=== PATIENT | male | born 1950 | race Caucasian/White ===

== ENCOUNTER 2021-01-20 01:04 | Emergency (ER) | payer BC ==
[~2021-01-20] VITALS: Ht 198.1 cm; Wt 104.5 kg
[2021-01-20] MEDS ORDERED: fentaNYL/PF 50MCG/1 ML 2ML syringe IV ONE ×3 (01:10→02:50)
[2021-01-20] MEDS ORDERED: ondansetron/PF 4mg/2ml inj IV ONE ×2 (01:10→01:15)
[2021-01-20] MEDS ORDERED: TETanus/Pertussis (Acell)/Diphther VAC/PF (Tdap-Adult) 0.5ml syringe IMVAC ONE (01:15)
[2021-01-20] MEDS ORDERED: normal saline 1000ML IV soln IVB ONE (01:15)
[2021-01-20] MEDS ORDERED: etomidate 2mg/ml inj. IV ONE (01:15)
[2021-01-20] MEDS ORDERED: bacitracin 15gm ointment TP ONE (01:15)
[2021-01-20 01:32] LABS: BASOPHILS # (AUTO) 0.1 X10'3 (0-0.2); BASOPHILS % (AUTO) 0.5 % (0-1); EOSINOPHILS # (AUTO) 0.1 X10'3 (0-0.9); EOSINOPHILS % (AUTO) 0.5 % (0-6); HEMATOCRIT 39.5 % (42.0-52.0); HEMOGLOBIN 13.2 g/dl (14.0-17.9); LYMPHOCYTES # (AUTO) 1.4 X10'3 (1.1-4.8); MEAN CORPUSCULAR HGB CONC 33.4 g/dL (33.0-36.5); MEAN CORPUSCULAR VOLUME 89.6 FL (78-98); MEAN PLATELET VOLUME 7.8 FL (7.4-10.4); MONOCYTES # (AUTO) 0.5 X10'3 (0-0.9); NEUTROPHILS # (AUTO) 11.6 X10'3 (1.8-7.7); PLATELET COUNT 262 X10'3 (140-440); RED CELL DISTRIBUTION WIDTH 14.6 % (11.5-14.5); WHITE BLOOD COUNT 13.6 X10'3 (4.5-11.0)
[2021-01-20 01:37] LABS: ALANINE AMINOTRANSFERASE 26 U/L (12-78); ALBUMIN 3.6 G/DL (3.4-5.0); ALBUMIN/GLOBULIN RATIO 0.9 (1.1-1.5); ALKALINE PHOSPHATASE 177 IU/L (46-116); ANION GAP 8 (8-16); ASPARTATE AMINO TRANSFERASE 21 U/L (10-37); BILIRUBIN,TOTAL 0.7 MG/DL (0.1-1.0); BLOOD UREA NITROGEN 24 MG/DL (7-18); BUN/CREATININE RATIO 20.7 (5.4-32.0); CALCIUM 8.5 MG/DL (8.5-10.1); CHLORIDE 103 MMOL/L (99-107); CREATININE 1.16 MG/DL (0.60-1.10); GLUCOSE 119 MG/DL (70-104); POTASSIUM 4.3 MMOL/L (3.5-5.1); SODIUM 140 MMOL/L (135-145); TOTAL PROTEIN 7.5 G/DL (6.4-8.2); eGFR 62 ML/MIN
[2021-01-20 01:47] LABS: CKMB RELATIVE INDEX 4.7 RATIO (0-2.5); CREATINE KINASE 176 U/L (39-308)
[2021-01-20] MEDS ORDERED: HYDR-3964 PO (02:26)
[2021-01-20] MEDS ORDERED: ONDA4TAB6 PO (02:26)
[2021-01-20] MEDS ORDERED: CEPH-585 PO (02:32)
[2021-01-20] MEDS ORDERED: propofol 10mg/ml 20ml vial IV ONE (02:45)
[2021-01-20] MEDS ORDERED: ceFAZolin 1000mg inj IV ONE (02:55)
[2021-01-20] MEDS ORDERED: gentamicin in saline, iso-osm 80 MG/50 ML premix IV ONE (02:55)
[2021-01-20] MEDS ORDERED: cefazolin/dext.iso 2gm/100ml 100 ML IV ONE (03:10)
[2021-01-20] MEDS ORDERED: FLUT16SP20 BOTHNARES (03:18)
[2021-01-20] MEDS ORDERED: DIGO125T PO (03:18)
[2021-01-20] MEDS ORDERED: WARF-55 PO (03:18)
[2021-01-20] MEDS ORDERED: SPIR25TA5 PO (03:18)
[2021-01-20] MEDS ORDERED: FLO0.4C PO (03:18)
[2021-01-20] MEDS ORDERED: METO-384 PO (03:18)
[2021-01-20] MEDS ORDERED: gentamicin inj 80 MG in normal saline 100ml IV soln 98 ML IV ONE (03:20)
[2021-01-20] MEDS ORDERED: potassium Cl 40MEQ/1/2NS 520ml 520 ML IV PRN ×2 (03:50)
[2021-01-20] MEDS ORDERED: HYDROmorphone inj. 0.5 MG/0.5 ML DISP.SYRIN IV PRN (03:50)
[2021-01-20] MEDS ORDERED: magnesium 2GM in 50ml NS 50 ML IV PRN (03:50)
[2021-01-20] MEDS ORDERED: magnesium hydroxide 30ml (MOM) UD suspension PO PRN (03:50)
[2021-01-20] MEDS ORDERED: ondansetron/PF 4mg/2ml inj IV PRN (03:50)
[2021-01-20] MEDS ORDERED: mag hydrox/Alum hydrox/simeth 30ml oral suspension PO PRN (03:50)
[2021-01-20] MEDS ORDERED: normal saline 1000ml 1,000 ML IV SCH (03:50)
[2021-01-20] MEDS ORDERED: acetaminophen 325mg tablet PO PRN ×2 (03:50)
[2021-01-20] MEDS ORDERED: bisacodyl 10mg suppository rectal RC PRN (03:50)
[2021-01-20] MEDS ORDERED: HYDROcodone/acetaminophen 5mg/325mg tablet PO PRN (03:50)
[2021-01-20] MEDS ORDERED: magnesium 4gm in 100ml NS 100 ML IV PRN (03:50)
[2021-01-20] MEDS ORDERED: magnesium Cl slow-release 64mg tablet PO PRN (03:50)
[2021-01-20] MEDS ORDERED: potassium Cl 20 mEq SR tablet PO PRN ×2 (03:50)
[2021-01-20] MEDS ORDERED: HYDROcodone/acetaminophen 10/325mg tab PO PRN (03:50)
[2021-01-20] MEDS ORDERED: metoclopramide 5 mg/ml inj IV PRN (03:50)
[2021-01-20 04:24] LABS: PARTIAL THROMBOPLASTIN TIME 33 SECONDS (22-32)
--- NOTE | 2021-01-20 04:36 | NUR ---
OMAYRA late from pharmacy
[2021-01-20 05:29] LABS: ETHANOL < 0.010 GM/DL (0.0-0.010)
[2021-01-20 06:06] LABS: URINE AMPHETAMINE SCREEN POSITIVE (Neg); URINE BARBITUATE SCREEN NEGATIVE (Neg); URINE BENZODIAZEPINES SCREEN NEGATIVE (Neg); URINE CANNABINOID SCREEN NEGATIVE (Neg); URINE COCAINE SCREEN NEGATIVE (Neg); URINE METHADONE SCREEN NEGATIVE (Neg); URINE OPIATE SCREEN NEGATIVE (Neg); URINE PHENCYCLIDINE SCREEN NEGATIVE (Neg)
[2021-01-20] MEDS ORDERED: GENTAMICIN IV SCH (08:00)
[2021-01-20] MEDS ORDERED: ceFAZolin/D5W- 1GM premix 50 ML IV SCH (08:00)
[2021-01-20] MEDS ORDERED: digoxin 125mcg (0.125mg) tablet PO SCH (08:00)
[2021-01-20] MEDS ORDERED: spironolactone 25 MG tablet PO SCH (08:00)
[2021-01-20] MEDS ORDERED: K and/or MAG REPLACEMENT MC SCH (08:00)
[2021-01-20] MEDS ORDERED: NORMAL SALINE IV SCH (08:00)
[2021-01-20] MEDS ORDERED: metoprolol succinate 25mg (24-HOUR) SR. Tablet PO SCH (08:00)
[2021-01-20] MEDS ORDERED: tamsulosin 0.4mg capsule PO SCH (08:00)
--- NOTE | 2021-01-20 08:05 | NUR ---
REPORT GIVEN TO STACIA RODAS AT [facility]
[2021-01-20 08:14] VITALS: BP 112/73
--- NOTE | 2021-01-20 08:20 | NUR ---
RECEIVED VO FROM DR HEAD TO RUN FFP AT WIDE OPEN.
--- NOTE | 2021-01-20 08:37 | NUR ---
FFP UNIT COMPLETED, VS REMAIN STABLE
--- NOTE | 2021-01-20 08:43 | NUR ---
PT LEAVING WITH [facility]
--- NOTE | 2021-01-20 08:45 | NUR ---
PT LEFT BY EMS TO BE TRANSFERRED TO [facility].
[2021-01-20] MEDS ORDERED: temazepam 15mg capsule PO PRN (21:00)
== END 2021-01-20 08:47 | disposition short-term general hospital (02) ==
LOC: ER 01:04 → ED HOLD 04:11 → UNDOADMIN 04:11 → ED HOLD 04:12
DX: S52.501B Unspecified fracture of the lower end of right radius, initial encounter for open fracture type I or II (principal); S52.601B Unspecified fracture of lower end of right ulna, initial encounter for open fracture type I or II; G89.29 Other chronic pain; M25.551 Pain in right hip; Z79.899 Other long term (current) drug therapy; X58.XXXA Exposure to other specified factors, initial encounter; Y93.89 Activity, other specified; Y92.89 Other specified places as the place of occurrence of the external cause; Y99.8 Other external cause status
CPT/HCPCS: 25605; 36415; 36430; 71045; 73090; 73120; 80053; 80162; 80305; 80320; 82550; 82553; 84443; 85025; 85610; 85730; 86885; 86900; 86901; 87635; 90471; 90715; 96361; 96365; 96368; 96375; 96376; 99152; 99285; J1580; J2405; J3010; J7030; P9059; 73080; 94760

== ENCOUNTER 2023-02-13 10:52 | Emergency (ER) | payer BC, OTHER ==
[~2023-02-13] VITALS: Ht 195.6 cm; Wt 79.5 kg
[~2023-02-13 10:52] MED LIST: DIGO125T PO; FLO0.4C PO; FLUT16SP20 BOTHNARES; METO-384 PO; SPIR25TA5 PO; WARF-55 PO
[2023-02-13 11:56] LABS: BASOPHILS % (AUTO) 0.2 % (0-1); EOSINOPHILS % (AUTO) 0.1 % (0-6); HEMATOCRIT 29.8 % (42.0-52.0); HEMOGLOBIN 9.4 g/dl (14.0-17.9); LYMPHOCYTES # (AUTO) 1.3 X10'3 (1.1-4.8); LYMPHOCYTES % (AUTO) 9.1 % (21-51); MEAN CORPUSCULAR HEMOGLOBIN 25.5 PG (27.0-31.0); MEAN CORPUSCULAR HGB CONC 31.4 g/dL (33.0-36.5); MEAN CORPUSCULAR VOLUME 81.2 FL (78-98); MEAN PLATELET VOLUME 7.1 FL (7.4-10.4); MONOCYTES # (AUTO) 0.3 X10'3 (0-0.9); MONOCYTES % (AUTO) 2.3 % (2-12); NEUTROPHILS # (AUTO) 12.7 X10'3 (1.8-7.7); NEUTROPHILS % (AUTO) 88.3 % (42-75); PLATELET COUNT 436 X10'3 (140-440); RED BLOOD COUNT 3.67 X10'6 (4.70-6.10); RED CELL DISTRIBUTION WIDTH 18.8 % (11.5-14.5); WHITE BLOOD COUNT 14.3 X10'3 (4.5-11.0)
[2023-02-13 11:58] LABS: ALANINE AMINOTRANSFERASE 11 U/L (12-78); ALBUMIN 2.5 G/DL (3.4-5.0); ALBUMIN/GLOBULIN RATIO 0.5 (1.1-1.5); ALKALINE PHOSPHATASE 122 IU/L (46-116); ANION GAP 14 (8-16); ASPARTATE AMINO TRANSFERASE 13 U/L (10-37); BILIRUBIN,TOTAL 0.3 MG/DL (0.1-1.0); BLOOD UREA NITROGEN 69 MG/DL (7-18); BUN/CREATININE RATIO 22.8 (10.0-20.0); CALCIUM 8.7 MG/DL (8.5-10.1); CHLORIDE 104 MMOL/L (99-107); CREATININE 3.02 MG/DL (0.60-1.10); GLUCOSE 116 MG/DL (70-104); LIPASE 90 U/L (73-393); POTASSIUM 4.7 MMOL/L (3.5-5.1); SODIUM 141 MMOL/L (135-145); TOTAL CARBON DIOXIDE 22.7 MMOL/L (24-32); TOTAL PROTEIN 7.7 G/DL (6.4-8.2); eGFR 20 ML/MIN
[2023-02-13 13:01] LABS: COLOR,URINE YELLOW (Yellow); GLUCOSE, URINE NEGATIVE (Neg); KETONES,URINE NEGATIVE (Neg); LEUKOCYTE ESTERASE ,URINE LARGE (Neg); NITRITES, URINE POSITIVE (Neg); OCCULT BLOOD,URINE SMALL (Neg); PH,URINE 5.5 (4.8-8.0); PROTEIN,URINE 100 mg/dl (Neg); UA COLLECTION TYPE CLN CATCH MIDSTREAM; UROBILINOGEN,URINE 0.2 E.U/dL (0.2-1.0)
[2023-02-13 13:02] LABS: CLARITY,URINE TURBID (Clear)
[2023-02-13 13:03] LABS: WBC,URINE TNTC /HPF (0-4)
[2023-02-13 13:04] LABS: BACTERIA,URINE 2+ /HPF (Neg); MUCUS STRANDS NONE SEEN /LPF (Neg); RBC,URINE NONE SEEN /HPF (0-2); SQUAMOUS EPITHELIAL CELL,UR NONE SEEN /LPF (FEW)
[2023-02-13 14:00] LABS: ANISOCYTOSIS 2+; ELLIPTOCYTES FEW; MICROCYTOSIS 1+; PLATELET ESTIMATE NORMAL
[2023-02-13 14:12] VITALS: BP 108/61
[2023-02-13] MEDS ORDERED: CEPH500C2 PO (14:34)
== END 2023-02-13 14:59 | disposition home or self-care (01) ==
LOC: ER 10:53
DX: N39.0 Urinary tract infection, site not specified (principal); Z79.899 Other long term (current) drug therapy
CPT/HCPCS: 36415; 80053; 81001; 83690; 85008; 85025; 87088; 87186; 99283

== ENCOUNTER 2023-07-22 13:01 | Inpatient (IN) | payer OTHER ==
[~2023-07-22] VITALS: Ht 200.7 cm; Wt 75.6 kg
[~2023-07-22 13:01] MED LIST changes: -DIGO125T PO; -FLO0.4C PO; -FLUT16SP20 BOTHNARES; -METO-384 PO; +NO HOME MEDS; -SPIR25TA5 PO; -WARF-55 PO
[2023-07-22 13:50] LABS: BASOPHILS # (AUTO) 0.1 X10'3 (0-0.2); BASOPHILS % (AUTO) 0.5 % (0-1); EOSINOPHILS % (AUTO) 0.1 % (0-6); HEMATOCRIT 31.5 % (42.0-52.0); HEMOGLOBIN 10.1 g/dl (14.0-17.9); LYMPHOCYTES # (AUTO) 0.3 X10'3 (1.1-4.8); LYMPHOCYTES % (AUTO) 1.3 % (21-51); MEAN CORPUSCULAR HEMOGLOBIN 28.5 PG (27.0-31.0); MONOCYTES # (AUTO) 0.4 X10'3 (0-0.9); MONOCYTES % (AUTO) 1.7 % (2-12); NEUTROPHILS # (AUTO) 21.2 X10'3 (1.8-7.7); NEUTROPHILS % (AUTO) 96.4 % (42-75); PLATELET COUNT 278 X10'3 (140-440); RED BLOOD COUNT 3.54 X10'6 (4.70-6.10); RED CELL DISTRIBUTION WIDTH 16.8 % (11.5-14.5)
[2023-07-22 13:56] LABS: INR 1.2 INR; PROTHROMBIN TIME 12.6 SECONDS (9.0-12.0)
[2023-07-22 14:00] LABS: ALANINE AMINOTRANSFERASE 16 U/L (12-78); ALBUMIN 1.9 G/DL (3.4-5.0); ALBUMIN/GLOBULIN RATIO 0.5 (1.1-1.5); ALKALINE PHOSPHATASE 84 IU/L (46-116); ANION GAP 21 (8-16); ASPARTATE AMINO TRANSFERASE 26 U/L (10-37); BILIRUBIN,TOTAL 0.3 MG/DL (0.1-1.0); BLOOD UREA NITROGEN 144 MG/DL (7-18); BUN/CREATININE RATIO 17.4 (10.0-20.0); CALCIUM 8.2 MG/DL (8.5-10.1); CHLORIDE 100 MMOL/L (99-107); CREATININE 8.29 MG/DL (0.60-1.10); GLUCOSE 162 MG/DL (70-104); LIPASE 14 U/L (16-77); MAGNESIUM 2.2 MG/DL (1.5-2.4); SODIUM 133 MMOL/L (135-145); TOTAL PROTEIN 5.9 G/DL (6.4-8.2); eCRCL 8 ML/MIN; eGFR 6 ML/MIN
[2023-07-22 14:02] LABS: POTASSIUM 6.2 MMOL/L (3.5-5.1); TOTAL CARBON DIOXIDE 12.2 MMOL/L (24-32)
[2023-07-22 14:11] LABS: ETHANOL < 10 MG/DL (<10)
[2023-07-22] MEDS: normal saline 1000ML IV soln IVB ONE (14:30)
[2023-07-22] MEDS: ondansetron/PF 4mg/2ml inj IV ONE (14:30)
[2023-07-22] MEDS: sodium bicarbonate (8.4%) inj. 50 MEQ in dextrose 5%-water 1,000 ML IV SCH (15:01)
[2023-07-22] MEDS: LidoCAINE 2% Topical Jelly 11mL syringe (UROJET) TOP ONE (15:01)
[2023-07-22] MEDS ORDERED: acetaminophen 325mg tablet PO PRN (15:05)
[2023-07-22] MEDS ORDERED: sodium bicarbonate (8.4%) inj. 50 MEQ in dextrose 5%-water 1,000 ML IV SCH (15:10)
[2023-07-22] MEDS: CALCIUM GLUC 1gm/50ml NACL,iso 50 ML IV ONE (15:53)
[2023-07-22] MEDS: insulin regular, human 10 units/0.1 ml syringe IV ONE (16:02)
[2023-07-22] MEDS: CefTRIAXone 2gm/D5W 50ml BAG 50 ML IV SCH (16:09)
[2023-07-22] MEDS: sodium polystyrene sulfonate 15gm/60ml oral suspension PO ONE (16:14)
[2023-07-22] MEDS: albuterol 2.5 MG/3 ML nebule NEB ONE (16:43)
[2023-07-22 16:46] VITALS: PULSE 98; RESP 16; O2SAT 96
[2023-07-22 16:51] VITALS: PULSE 105; RESP 16; O2SAT 100
[2023-07-22 17:10] LABS: CLARITY,URINE TURBID (Clear); COLOR,URINE YELLOW (Yellow); UA COLLECTION TYPE STRAIGHT CATH
[2023-07-22 17:11] LABS: GLUCOSE, URINE NEGATIVE (Neg); KETONES,URINE 15 mg/dl (Neg); OCCULT BLOOD,URINE LARGE (Neg); PROTEIN,URINE 300 mg/dl (Neg)
[2023-07-22 17:12] LABS: BILIRUBIN,URINE NEGATIVE (Neg); LEUKOCYTE ESTERASE ,URINE LARGE (Neg); NITRITES, URINE NEGATIVE (Neg); UROBILINOGEN,URINE 0.2 E.U/dL (0.2-1.0)
[2023-07-22 17:13] LABS: BACTERIA,URINE 3+ /HPF (Neg); SQUAMOUS EPITHELIAL CELL,UR NONE SEEN /LPF (FEW); WBC CLUMPS,URINE MANY /HPF (NEGATIVE); WBC,URINE TNTC /HPF (0-4)
[2023-07-22 17:36] LABS: BASOPHILS % (AUTO) 0 % (0-1); EOSINOPHILS % (AUTO) 0 % (0-6); HEMATOCRIT 28.6 % (42.0-52.0); HEMOGLOBIN 9.3 g/dl (14.0-17.9); LYMPHOCYTES # (AUTO) 0.7 X10'3 (1.1-4.8); LYMPHOCYTES % (AUTO) 2.9 % (21-51); MEAN CORPUSCULAR HEMOGLOBIN 29.1 PG (27.0-31.0); MEAN CORPUSCULAR HGB CONC 32.5 g/dL (33.0-36.5); MEAN CORPUSCULAR VOLUME 89.6 FL (78-98); MONOCYTES # (AUTO) 0.5 X10'3 (0-0.9); MONOCYTES % (AUTO) 1.9 % (2-12); NEUTROPHILS # (AUTO) 22.9 X10'3 (1.8-7.7); NEUTROPHILS % (AUTO) 95.2 % (42-75); PLATELET COUNT 269 X10'3 (140-440); RED BLOOD COUNT 3.19 X10'6 (4.70-6.10); RED CELL DISTRIBUTION WIDTH 16.8 % (11.5-14.5); WHITE BLOOD COUNT 24.1 X10'3 (4.5-11.0)
[2023-07-22 17:55] LABS: ALANINE AMINOTRANSFERASE 9 U/L (12-78); ALBUMIN 1.4 G/DL (3.4-5.0); ALBUMIN/GLOBULIN RATIO 0.2 (1.1-1.5); ALKALINE PHOSPHATASE 67 IU/L (46-116); ANION GAP 27 (8-16); BILIRUBIN,TOTAL 0.2 MG/DL (0.1-1.0); BLOOD UREA NITROGEN 134 MG/DL (7-18); BUN/CREATININE RATIO 17.6 (10.0-20.0); CALCIUM 7.7 MG/DL (8.5-10.1); CHLORIDE 94 MMOL/L (99-107); CREATININE 7.62 MG/DL (0.60-1.10); POTASSIUM 5.5 MMOL/L (3.5-5.1); SODIUM 135 MMOL/L (135-145); TOTAL PROTEIN 7.2 G/DL (6.4-8.2); eCRCL 8 ML/MIN; eGFR 7 ML/MIN
[2023-07-22] MEDS: normal saline 1000ml 1,000 ML IV ONE (17:55)
[2023-07-22 17:58] LABS: GLUCOSE 507 MG/DL (70-104)
[2023-07-22 17:59] LABS: TOTAL CARBON DIOXIDE 13.7 MMOL/L (24-32)
[2023-07-22] MEDS ORDERED: glucagon, human recombinant 1mg kit SUBCUT PRN (18:05)
[2023-07-22] MEDS ORDERED: dextrose 50%-water 50ml dispensing syringe IV PRN ×3 (18:05→19:35)
[2023-07-22] MEDS ORDERED: DEXTROSE 15 GM of carb/4 tabs (each vial/BOTTLE has 4 tablets) PO PRN ×2 (18:05)
[2023-07-22] MEDS ORDERED: insulin Lispro (HumaLOG) vial - multi-dose SQ SCH (18:05)
[2023-07-22] MEDS: MESSAGE TO PHARMACY PO ONE (18:21)
[2023-07-22 18:28] LABS: ASPARTATE AMINO TRANSFERASE 12 U/L (10-37)
[2023-07-22] MEDS: midodrine 5mg tablet PO SCH (18:42)
[2023-07-22] MEDS ORDERED: Insulin Reg/NS 100units/100mL 100 ML IV SCH (19:35)
[2023-07-22] MEDS ORDERED: albumin (human) 25% 100ml IV 100 ML in dextrose 5% water 500ml 400 ML IV ONE (19:40)
[2023-07-22 20:00] LABS: ABG BASE EXCESS -13.8 mmol/L (-2.0-2.0); ABG HCO3 10.7 mmol/L (22.0-26.0); ABG OXYGEN SATURATION 95.6 % (94-97); ABG PCO2 (T) 21.1 mmHg (35.0-48.0); ABG PO2 (T) 77.8 mmHg (75.0-100.0); FCOHb 0.3 % (0.0-3.9); FHHb 4.4 % (0.0-5.0); FMetHb 0.5 % (0.0-1.5); FO2Hb 94.8 % (94-97); MODE ROOM AIR; PATIENT TEMPERATURE 36.1; TOTAL HEMOGLOBIN 10.7 G/dl (14.0-17.9)
[2023-07-22] MEDS ORDERED: heparin, porcine 5000 units/ml vial SQ SCH (20:00)
[2023-07-22] MEDS: albumin (human) 25% 100ml IV 100 ML IV ONE (20:02)
[2023-07-22] MEDS: apixaban 5mg tablet PO SCH (20:10)
[2023-07-22 20:25] LABS: ALANINE AMINOTRANSFERASE 22 U/L (12-78); ALBUMIN 1.9 G/DL (3.4-5.0); ALBUMIN/GLOBULIN RATIO 0.5 (1.1-1.5); ALKALINE PHOSPHATASE 83 IU/L (46-116); ANION GAP 19 (8-16); ASPARTATE AMINO TRANSFERASE 22 U/L (10-37); BILIRUBIN,TOTAL 0.3 MG/DL (0.1-1.0); BLOOD UREA NITROGEN 137 MG/DL (7-18); BUN/CREATININE RATIO 19.2 (10.0-20.0); CHLORIDE 104 MMOL/L (99-107); CREATININE 7.13 MG/DL (0.60-1.10); GLUCOSE 153 MG/DL (70-104); POTASSIUM 5.4 MMOL/L (3.5-5.1); SODIUM 135 MMOL/L (135-145); TOTAL PROTEIN 5.7 G/DL (6.4-8.2); eCRCL 9 ML/MIN; eGFR 8 ML/MIN
[2023-07-22 20:36] LABS: TOTAL CARBON DIOXIDE 11.7 MMOL/L (24-32)
[2023-07-22] MEDS: insulin glargine (Lantus) pen - multi-dose SQ SCH (21:00)
[2023-07-22] MEDS: NORepinephrine 8mg/ 250ml NS 250 ML IV ONE ×2 (22:01→22:02)
[2023-07-22] MEDS: albumin (human) 25% 100 ML IV solution IV ONE (22:05)
[2023-07-22] MEDS: ondansetron/PF 4mg/2ml inj IV PRN (22:19)
[2023-07-22] MEDS: morphine 4 MG/ML inj SYRINge IV PRN (22:21)
[2023-07-22 22:55] LABS: BASOPHILS % (AUTO) 0.1 % (0-1); EOSINOPHILS % (AUTO) 0 % (0-6); HEMATOCRIT 28.2 % (42.0-52.0); HEMOGLOBIN 9.1 g/dl (14.0-17.9); LYMPHOCYTES # (AUTO) 0.7 X10'3 (1.1-4.8); LYMPHOCYTES % (AUTO) 3.1 % (21-51); MEAN CORPUSCULAR HEMOGLOBIN 28.8 PG (27.0-31.0); MEAN CORPUSCULAR HGB CONC 32.4 g/dL (33.0-36.5); MEAN CORPUSCULAR VOLUME 88.8 FL (78-98); MONOCYTES # (AUTO) 0.5 X10'3 (0-0.9); NEUTROPHILS # (AUTO) 21.5 X10'3 (1.8-7.7); NEUTROPHILS % (AUTO) 94.8 % (42-75); PLATELET COUNT 257 X10'3 (140-440); RED BLOOD COUNT 3.18 X10'6 (4.70-6.10); RED CELL DISTRIBUTION WIDTH 16.5 % (11.5-14.5); WHITE BLOOD COUNT 22.7 X10'3 (4.5-11.0)
[2023-07-22 23:08] LABS: ALANINE AMINOTRANSFERASE 18 U/L (12-78); ALBUMIN 2.4 G/DL (3.4-5.0); ALBUMIN/GLOBULIN RATIO 0.7 (1.1-1.5); ALKALINE PHOSPHATASE 76 IU/L (46-116); ANION GAP 18 (8-16); ASPARTATE AMINO TRANSFERASE 20 U/L (10-37); BILIRUBIN,TOTAL 0.3 MG/DL (0.1-1.0); BLOOD UREA NITROGEN 127 MG/DL (7-18); BUN/CREATININE RATIO 19.2 (10.0-20.0); CALCIUM 7.3 MG/DL (8.5-10.1); CHLORIDE 104 MMOL/L (99-107); GLUCOSE 234 MG/DL (70-104); POTASSIUM 4.7 MMOL/L (3.5-5.1); SODIUM 135 MMOL/L (135-145); TOTAL PROTEIN 5.7 G/DL (6.4-8.2); eCRCL 10 ML/MIN; eGFR 8 ML/MIN
[2023-07-22 23:13] LABS: TOTAL CARBON DIOXIDE 12.6 MMOL/L (24-32)
[2023-07-23] VITALS (24 sets, daily range): BP systolic 83–114; BP diastolic 47–62; PULSE 100–120; RESP 12–19; O2SAT 92–98
[2023-07-23] MEDS: morphine 4 MG/ML inj SYRINge IV ONE (00:03)
[2023-07-23 05:26] LABS: BASOPHILS % (AUTO) 0.1 % (0-1); EOSINOPHILS % (AUTO) 0.1 % (0-6); HEMATOCRIT 27.5 % (42.0-52.0); HEMOGLOBIN 8.8 g/dl (14.0-17.9); LYMPHOCYTES # (AUTO) 0.6 X10'3 (1.1-4.8); LYMPHOCYTES % (AUTO) 2.6 % (21-51); MEAN CORPUSCULAR HEMOGLOBIN 28.5 PG (27.0-31.0); MEAN CORPUSCULAR HGB CONC 32.1 g/dL (33.0-36.5); MEAN CORPUSCULAR VOLUME 88.8 FL (78-98); MEAN PLATELET VOLUME 7.8 FL (7.4-10.4); MONOCYTES # (AUTO) 0.5 X10'3 (0-0.9); MONOCYTES % (AUTO) 2.4 % (2-12); NEUTROPHILS # (AUTO) 20.6 X10'3 (1.8-7.7); NEUTROPHILS % (AUTO) 94.8 % (42-75); PLATELET COUNT 234 X10'3 (140-440); RED BLOOD COUNT 3.09 X10'6 (4.70-6.10); RED CELL DISTRIBUTION WIDTH 16.8 % (11.5-14.5); WHITE BLOOD COUNT 21.8 X10'3 (4.5-11.0)
[2023-07-23 05:34] LABS: ALANINE AMINOTRANSFERASE 23 U/L (12-78); ALBUMIN 2.3 G/DL (3.4-5.0); ALBUMIN/GLOBULIN RATIO 0.6 (1.1-1.5); ALKALINE PHOSPHATASE 85 IU/L (46-116); ANION GAP 18 (8-16); ASPARTATE AMINO TRANSFERASE 21 U/L (10-37); BILIRUBIN,TOTAL 0.3 MG/DL (0.1-1.0); BLOOD UREA NITROGEN 141 MG/DL (7-18); BUN/CREATININE RATIO 19.7 (10.0-20.0); CALCIUM 8.2 MG/DL (8.5-10.1); CHLORIDE 104 MMOL/L (99-107); CREATININE 7.17 MG/DL (0.60-1.10); GLUCOSE 172 MG/DL (70-104); POTASSIUM 4.9 MMOL/L (3.5-5.1); SODIUM 136 MMOL/L (135-145); TOTAL PROTEIN 5.9 G/DL (6.4-8.2); eCRCL 10 ML/MIN; eGFR 8 ML/MIN
[2023-07-23 05:36] LABS: TOTAL CARBON DIOXIDE 14.4 MMOL/L (24-32)
[2023-07-23] MEDS ORDERED: MIDO5TAB4 PO (06:40)
[2023-07-23] MEDS ORDERED: AMI200T PO (06:40)
[2023-07-23] MEDS ORDERED: APIX5TAB3 PO (06:40)
[2023-07-23] MEDS ORDERED: LISI5TAB22 PO (06:40)
[2023-07-23] MEDS ORDERED: FERR325T29 PO (06:40)
[2023-07-23] MEDS: ringers solution, lacted 1,000 ML IV ONE (07:41)
[2023-07-23] MEDS ORDERED: CefTRIAXone 2gm/D5W 50ml BAG 50 ML IV SCH (08:00)
[2023-07-23] MEDS: NORepinephrine 8mg/ 250ml NS 250 ML IV SCH (09:49)
[2023-07-23] MEDS: mag hydrox/Alum hydrox/simeth 30ml oral suspension PO PRN (12:48)
[2023-07-23] MEDS: ondansetron/PF 4mg/2ml inj IV PRN (14:54)
[2023-07-24] VITALS (25 sets, daily range): BP systolic 78–113; BP diastolic 43–62; PULSE 100–124; RESP 12–22; O2SAT 91–100
[2023-07-24] MEDS: PERFLUTREN PROTEIN-A MICROSPHR (Optison) 0.22 MG/ML 3ML VIAL IV ONE (00:19)
[2023-07-24 02:48] LABS: BASOPHILS % (AUTO) 0 % (0-1); EOSINOPHILS # (AUTO) 0.1 X10'3 (0-0.9); EOSINOPHILS % (AUTO) 0.4 % (0-6); HEMATOCRIT 24.9 % (42.0-52.0); HEMOGLOBIN 8.2 g/dl (14.0-17.9); LYMPHOCYTES # (AUTO) 0.6 X10'3 (1.1-4.8); LYMPHOCYTES % (AUTO) 4.3 % (21-51); MEAN CORPUSCULAR HGB CONC 32.9 g/dL (33.0-36.5); MEAN CORPUSCULAR VOLUME 88.1 FL (78-98); MEAN PLATELET VOLUME 8.2 FL (7.4-10.4); MONOCYTES # (AUTO) 0.3 X10'3 (0-0.9); MONOCYTES % (AUTO) 2.1 % (2-12); NEUTROPHILS # (AUTO) 14.1 X10'3 (1.8-7.7); NEUTROPHILS % (AUTO) 93.2 % (42-75); PLATELET COUNT 156 X10'3 (140-440); RED BLOOD COUNT 2.83 X10'6 (4.70-6.10); RED CELL DISTRIBUTION WIDTH 16.8 % (11.5-14.5); WHITE BLOOD COUNT 15.1 X10'3 (4.5-11.0)
[2023-07-24 02:56] LABS: ALANINE AMINOTRANSFERASE 20 U/L (12-78); ALBUMIN 1.8 G/DL (3.4-5.0); ALBUMIN/GLOBULIN RATIO 0.5 (1.1-1.5); ALKALINE PHOSPHATASE 84 IU/L (46-116); ANION GAP 15 (8-16); ASPARTATE AMINO TRANSFERASE 12 U/L (10-37); BILIRUBIN,TOTAL 0.2 MG/DL (0.1-1.0); BLOOD UREA NITROGEN 128 MG/DL (7-18); BUN/CREATININE RATIO 21.8 (10.0-20.0); CALCIUM 7.8 MG/DL (8.5-10.1); CHLORIDE 106 MMOL/L (99-107); CREATININE 5.87 MG/DL (0.60-1.10); GLUCOSE 131 MG/DL (70-104); POTASSIUM 4.3 MMOL/L (3.5-5.1); SODIUM 138 MMOL/L (135-145); TOTAL CARBON DIOXIDE 17.2 MMOL/L (24-32); TOTAL PROTEIN 5.3 G/DL (6.4-8.2); eCRCL 12 ML/MIN; eGFR 9 ML/MIN
[2023-07-24] MEDS: amiodarone 200mg tablet PO SCH (07:15)
[2023-07-25] VITALS (26 sets, daily range): BP systolic 84–121; BP diastolic 45–74; PULSE 95–123; RESP 10–24; O2SAT 91–99
[2023-07-25 02:59] LABS: ALANINE AMINOTRANSFERASE 11 U/L (12-78); ALBUMIN 1.8 G/DL (3.4-5.0); ALBUMIN/GLOBULIN RATIO 0.5 (1.1-1.5); ALKALINE PHOSPHATASE 91 IU/L (46-116); ANION GAP 14 (8-16); ASPARTATE AMINO TRANSFERASE 9 U/L (10-37); BILIRUBIN,TOTAL 0.2 MG/DL (0.1-1.0); BLOOD UREA NITROGEN 108 MG/DL (7-18); CHLORIDE 106 MMOL/L (99-107); CREATININE 4.91 MG/DL (0.60-1.10); GLUCOSE 148 MG/DL (70-104); POTASSIUM 3.9 MMOL/L (3.5-5.1); SODIUM 141 MMOL/L (135-145); TOTAL CARBON DIOXIDE 21.1 MMOL/L (24-32); TOTAL PROTEIN 5.5 G/DL (6.4-8.2); eCRCL 14 ML/MIN; eGFR 12 ML/MIN
[2023-07-25 03:24] LABS: BASOPHILS % (AUTO) 0.1 % (0-1); EOSINOPHILS # (AUTO) 0.1 X10'3 (0-0.9); EOSINOPHILS % (AUTO) 1.2 % (0-6); HEMOGLOBIN 8.4 g/dl (14.0-17.9); LYMPHOCYTES # (AUTO) 0.7 X10'3 (1.1-4.8); LYMPHOCYTES % (AUTO) 6.5 % (21-51); MEAN CORPUSCULAR HGB CONC 32.5 g/dL (33.0-36.5); MEAN CORPUSCULAR VOLUME 89.2 FL (78-98); MEAN PLATELET VOLUME 8.5 FL (7.4-10.4); MONOCYTES # (AUTO) 0.3 X10'3 (0-0.9); MONOCYTES % (AUTO) 2.9 % (2-12); NEUTROPHILS # (AUTO) 10.1 X10'3 (1.8-7.7); NEUTROPHILS % (AUTO) 89.3 % (42-75); PLATELET COUNT 143 X10'3 (140-440); RED BLOOD COUNT 2.91 X10'6 (4.70-6.10); RED CELL DISTRIBUTION WIDTH 17.2 % (11.5-14.5); WHITE BLOOD COUNT 11.3 X10'3 (4.5-11.0)
[2023-07-25] MEDS: ringers solution, lacted 1,000 ML IV SCH (07:57)
[2023-07-25] MEDS: metoclopramide 5 mg/ml inj IV PRN (08:43)
[2023-07-25] MEDS: NUT.TX.IMP.RENAL FXN,LAC-REDUC (Nepro) 237 ML VANILLA PO SCH (13:00)
[2023-07-25] MEDS ORDERED: apixaban 5mg tablet PO SCH (20:00)
[2023-07-26] VITALS (25 sets, daily range): BP systolic 86–124; BP diastolic 52–79; PULSE 84–107; RESP 9–21; O2SAT 94–99
[2023-07-26 02:34] LABS: BASOPHILS % (AUTO) 0.5 % (0-1); EOSINOPHILS # (AUTO) 0.1 X10'3 (0-0.9); EOSINOPHILS % (AUTO) 1.9 % (0-6); HEMATOCRIT 24.5 % (42.0-52.0); HEMOGLOBIN 8.1 g/dl (14.0-17.9); LYMPHOCYTES # (AUTO) 0.7 X10'3 (1.1-4.8); MEAN CORPUSCULAR HEMOGLOBIN 29.3 PG (27.0-31.0); MEAN CORPUSCULAR HGB CONC 32.9 g/dL (33.0-36.5); MEAN CORPUSCULAR VOLUME 89.1 FL (78-98); MONOCYTES # (AUTO) 0.4 X10'3 (0-0.9); MONOCYTES % (AUTO) 4.4 % (2-12); NEUTROPHILS # (AUTO) 6.8 X10'3 (1.8-7.7); NEUTROPHILS % (AUTO) 84.2 % (42-75); PLATELET COUNT 142 X10'3 (140-440); RED BLOOD COUNT 2.75 X10'6 (4.70-6.10); RED CELL DISTRIBUTION WIDTH 17.3 % (11.5-14.5)
[2023-07-26 02:38] LABS: ALANINE AMINOTRANSFERASE 13 U/L (12-78); ALBUMIN 1.6 G/DL (3.4-5.0); ALBUMIN/GLOBULIN RATIO 0.5 (1.1-1.5); ALKALINE PHOSPHATASE 70 IU/L (46-116); ANION GAP 7 (8-16); ASPARTATE AMINO TRANSFERASE 10 U/L (10-37); BILIRUBIN,TOTAL 0.2 MG/DL (0.1-1.0); BLOOD UREA NITROGEN 89 MG/DL (7-18); BUN/CREATININE RATIO 23.9 (10.0-20.0); CALCIUM 8.1 MG/DL (8.5-10.1); CHLORIDE 110 MMOL/L (99-107); CREATININE 3.72 MG/DL (0.60-1.10); GLUCOSE 113 MG/DL (70-104); POTASSIUM 3.9 MMOL/L (3.5-5.1); SODIUM 143 MMOL/L (135-145); TOTAL CARBON DIOXIDE 25.8 MMOL/L (24-32); eCRCL 19 ML/MIN; eGFR 16 ML/MIN
[2023-07-26] MEDS: lactose-reduced food (Ensure Enlive) - 237ml bottle PO SCH (13:00)
[2023-07-27] VITALS (12 sets, daily range): BP systolic 98–113; BP diastolic 56–67; PULSE 90–111; RESP 11–19; TEMP 98; O2SAT 92–98
[2023-07-27 03:11] LABS: EOSINOPHILS # (AUTO) 0.4 X10'3 (0-0.9); HEMOGLOBIN 8.1 g/dl (14.0-17.9); MEAN CORPUSCULAR HGB CONC 32.7 g/dL (33.0-36.5); MONOCYTES # (AUTO) 0.4 X10'3 (0-0.9)
[2023-07-27 03:13] LABS: BASOPHILS % (AUTO) 0.1 % (0-1); EOSINOPHILS % (AUTO) 3.9 % (0-6); HEMATOCRIT 24.6 % (42.0-52.0); LYMPHOCYTES # (AUTO) 0.8 X10'3 (1.1-4.8); LYMPHOCYTES % (AUTO) 9.1 % (21-51); MEAN CORPUSCULAR HEMOGLOBIN 29.2 PG (27.0-31.0); MEAN CORPUSCULAR VOLUME 89.2 FL (78-98); MEAN PLATELET VOLUME 7.8 FL (7.4-10.4); MONOCYTES % (AUTO) 4.4 % (2-12); NEUTROPHILS # (AUTO) 7.4 X10'3 (1.8-7.7); NEUTROPHILS % (AUTO) 82.5 % (42-75); PLATELET COUNT 176 X10'3 (140-440); RED BLOOD COUNT 2.76 X10'6 (4.70-6.10); RED CELL DISTRIBUTION WIDTH 17.1 % (11.5-14.5)
[2023-07-27 03:22] LABS: ALANINE AMINOTRANSFERASE 8 U/L (12-78); ALBUMIN 1.7 G/DL (3.4-5.0); ALBUMIN/GLOBULIN RATIO 0.5 (1.1-1.5); ALKALINE PHOSPHATASE 71 IU/L (46-116); ANION GAP 7 (8-16); ASPARTATE AMINO TRANSFERASE 10 U/L (10-37); BILIRUBIN,TOTAL 0.2 MG/DL (0.1-1.0); BLOOD UREA NITROGEN 70 MG/DL (7-18); BUN/CREATININE RATIO 22.9 (10.0-20.0); CHLORIDE 109 MMOL/L (99-107); CREATININE 3.06 MG/DL (0.60-1.10); GLUCOSE 125 MG/DL (70-104); POTASSIUM 3.9 MMOL/L (3.5-5.1); SODIUM 142 MMOL/L (135-145); TOTAL CARBON DIOXIDE 25.7 MMOL/L (24-32); TOTAL PROTEIN 5.1 G/DL (6.4-8.2); eCRCL 23 ML/MIN; eGFR 20 ML/MIN
[2023-07-27] MEDS: acetaminophen 325mg tablet PO PRN (08:05)
[2023-07-28 14:56] LABS: ALBUMIN,BODY FLUID 1.3 G/DL; GLUCOSE,BODY FLUID 92 MG/DL; LDH,BODY FLUID 243 U/L; TOTAL PROTEIN,BODY FLUID 3.2 G/DL
[2023-07-28 15:05] LABS: LYMPHOCYTES,BODY FLUID 5 %; MONOCYTES,BODY FLUID 12 %; NEUTROPHILS,BODY FLUID 83 %
[2023-07-28 15:06] LABS: BF RBC COUNT 3800 /CU MM; BF WBC COUNT 13200 /CU MM (0-1000); BFAPPEAR CLOUDY; BFCOLOR YELLOW; BFSOURCE PERITONEAL FLD; BFVOLUME 58 ML
[2023-07-28] MEDS ORDERED: acetaminophen 325mg/10.15ml oral unit dose solution NG PRN (15:39)
[2023-07-28] MEDS ORDERED: mag hydrox/Alum hydrox/simeth 30ml oral suspension NG PRN (15:40)
[2023-07-28] MEDS: midodrine 5mg tablet NG SCH (16:00)
[2023-07-28] MEDS: apixaban 5mg tablet NG SCH (19:47)
[2023-07-28 19:50] VITALS: BP 123/69; PULSE 68; RESP 16; TEMP 97.6; O2SAT 95
[2023-07-28 22:00] VITALS: BP 119/68; PULSE 45; RESP 18; TEMP 98.6; O2SAT 90
[2023-07-29] VITALS (7 sets, daily range): BP systolic 97–117; BP diastolic 55–64; PULSE 59–119; RESP 11–17; TEMP 98.1–98.6; O2SAT 90–98
[2023-07-29 06:31] LABS: BASOPHILS % (AUTO) 0.2 % (0-1); EOSINOPHILS # (AUTO) 0.2 X10'3 (0-0.9); HEMATOCRIT 29.4 % (42.0-52.0); HEMOGLOBIN 9.3 g/dl (14.0-17.9); LYMPHOCYTES # (AUTO) 1.2 X10'3 (1.1-4.8); LYMPHOCYTES % (AUTO) 6.1 % (21-51); MEAN CORPUSCULAR HEMOGLOBIN 28.9 PG (27.0-31.0); MEAN CORPUSCULAR HGB CONC 31.7 g/dL (33.0-36.5); MEAN CORPUSCULAR VOLUME 91.1 FL (78-98); MONOCYTES # (AUTO) 0.6 X10'3 (0-0.9); MONOCYTES % (AUTO) 3.3 % (2-12); NEUTROPHILS # (AUTO) 17.4 X10'3 (1.8-7.7); NEUTROPHILS % (AUTO) 89.4 % (42-75); PLATELET COUNT 273 X10'3 (140-440); RED BLOOD COUNT 3.22 X10'6 (4.70-6.10); RED CELL DISTRIBUTION WIDTH 17.2 % (11.5-14.5); WHITE BLOOD COUNT 19.5 X10'3 (4.5-11.0)
[2023-07-29 06:56] LABS: ALBUMIN 1.8 G/DL (3.4-5.0); ANION GAP 10 (8-16); BLOOD UREA NITROGEN 45 MG/DL (7-18); BUN/CREATININE RATIO 19.8 (10.0-20.0); CALCIUM 7.9 MG/DL (8.5-10.1); CHLORIDE 107 MMOL/L (99-107); CREATININE 2.27 MG/DL (0.60-1.10); GLUCOSE 91 MG/DL (70-104); MAGNESIUM 1.3 MG/DL (1.5-2.4); PHOSPHORUS 3.3 MG/DL (2.3-4.5); POTASSIUM 3.8 MMOL/L (3.5-5.1); SODIUM 142 MMOL/L (135-145); TOTAL CARBON DIOXIDE 25.2 MMOL/L (24-32); eCRCL 31 ML/MIN; eGFR 28 ML/MIN
[2023-07-29] MEDS: amiodarone 200mg tablet NG SCH (08:03)
[2023-07-29] MEDS: morphine 2 MG/ML inj. syringe IV PRN (12:07)
[2023-07-29] MEDS: lactobacillus rhamnosus 10,000 MMU CELLS/CAPSULE PO SCH (17:08)
[2023-07-29] MEDS: FLUoxetine 10mg capsule PO ONE (17:31)
[2023-07-29] MEDS: HYDROcodone/acetaminophen 5mg/325mg tablet PO PRN (17:32)
[2023-07-30] VITALS (7 sets, daily range): BP systolic 88–116; BP diastolic 55–63; PULSE 82–113; RESP 14–16; TEMP 97.6–98.8; O2SAT 93–96
[2023-07-30] MEDS: VANCOMYCIN 125 MG/5 ML oral SOLN.RECON 5mL UD syringe (FIRVANQ) PO SCH (02:16)
[2023-07-30 06:34] LABS: HEMATOCRIT 27.3 % (42.0-52.0); HEMOGLOBIN 8.8 g/dl (14.0-17.9); MEAN CORPUSCULAR HEMOGLOBIN 29.1 PG (27.0-31.0); MEAN CORPUSCULAR HGB CONC 32.2 g/dL (33.0-36.5); MEAN CORPUSCULAR VOLUME 90.3 FL (78-98); PLATELET COUNT 313 X10'3 (140-440); RED BLOOD COUNT 3.03 X10'6 (4.70-6.10); RED CELL DISTRIBUTION WIDTH 17.1 % (11.5-14.5)
[2023-07-30 06:35] LABS: ALBUMIN 1.6 G/DL (3.4-5.0); ANION GAP 8 (8-16); BASOPHILS % (AUTO) 0.2 % (0-1); BLOOD UREA NITROGEN 40 MG/DL (7-18); BUN/CREATININE RATIO 18.7 (10.0-20.0); CALCIUM 7.9 MG/DL (8.5-10.1); CHLORIDE 108 MMOL/L (99-107); CREATININE 2.14 MG/DL (0.60-1.10); EOSINOPHILS # (AUTO) 0.3 X10'3 (0-0.9); EOSINOPHILS % (AUTO) 2.2 % (0-6); GLUCOSE 97 MG/DL (70-104); LYMPHOCYTES # (AUTO) 1.1 X10'3 (1.1-4.8); LYMPHOCYTES % (AUTO) 7.2 % (21-51); MAGNESIUM 1.4 MG/DL (1.5-2.4); MONOCYTES # (AUTO) 0.7 X10'3 (0-0.9); MONOCYTES % (AUTO) 4.3 % (2-12); NEUTROPHILS # (AUTO) 13.7 X10'3 (1.8-7.7); NEUTROPHILS % (AUTO) 86.1 % (42-75); PHOSPHORUS 3.2 MG/DL (2.3-4.5); POTASSIUM 3.5 MMOL/L (3.5-5.1); SODIUM 143 MMOL/L (135-145); TOTAL CARBON DIOXIDE 27.1 MMOL/L (24-32); eCRCL 32 ML/MIN; eGFR 30 ML/MIN
[2023-07-30] MEDS: FLUoxetine 10mg capsule PO SCH (08:37)
[2023-07-31 06:00] VITALS: BP 99/59; PULSE 86; RESP 14; TEMP 97.9; O2SAT 96
[2023-07-31 07:05] LABS: BASOPHILS # (AUTO) 0.1 X10'3 (0-0.2); BASOPHILS % (AUTO) 0.5 % (0-1); EOSINOPHILS # (AUTO) 0.4 X10'3 (0-0.9); EOSINOPHILS % (AUTO) 3.1 % (0-6); HEMATOCRIT 25.9 % (42.0-52.0); HEMOGLOBIN 8.3 g/dl (14.0-17.9); LYMPHOCYTES # (AUTO) 1.3 X10'3 (1.1-4.8); LYMPHOCYTES % (AUTO) 10.4 % (21-51); MEAN CORPUSCULAR HEMOGLOBIN 28.7 PG (27.0-31.0); MEAN CORPUSCULAR VOLUME 89.8 FL (78-98); MEAN PLATELET VOLUME 7.8 FL (7.4-10.4); MONOCYTES # (AUTO) 0.5 X10'3 (0-0.9); MONOCYTES % (AUTO) 4.2 % (2-12); NEUTROPHILS # (AUTO) 10.4 X10'3 (1.8-7.7); NEUTROPHILS % (AUTO) 81.8 % (42-75); PLATELET COUNT 343 X10'3 (140-440); RED BLOOD COUNT 2.88 X10'6 (4.70-6.10); RED CELL DISTRIBUTION WIDTH 16.5 % (11.5-14.5); WHITE BLOOD COUNT 12.7 X10'3 (4.5-11.0)
[2023-07-31 07:22] LABS: ALBUMIN 1.6 G/DL (3.4-5.0); ANION GAP 8 (8-16); BLOOD UREA NITROGEN 37 MG/DL (7-18); BUN/CREATININE RATIO 17.3 (10.0-20.0); CALCIUM 7.7 MG/DL (8.5-10.1); CHLORIDE 107 MMOL/L (99-107); CREATININE 2.14 MG/DL (0.60-1.10); GLUCOSE 95 MG/DL (70-104); MAGNESIUM 1.3 MG/DL (1.5-2.4); PHOSPHORUS 3.3 MG/DL (2.3-4.5); POTASSIUM 3.2 MMOL/L (3.5-5.1); SODIUM 141 MMOL/L (135-145); TOTAL CARBON DIOXIDE 26.2 MMOL/L (24-32); eCRCL 32 ML/MIN; eGFR 30 ML/MIN
[2023-07-31] MEDS: VANCOMYCIN 125 MG/5 ML oral SOLN.RECON 5mL UD syringe (FIRVANQ) PO SCH (13:39)
[2023-07-31] MEDS ORDERED: magnesium Cl slow-release 64mg tablet PO PRN (13:40)
[2023-07-31] MEDS ORDERED: potassium Cl 40MEQ/1/2NS 520ml 520 ML IV PRN (13:40)
[2023-07-31] MEDS ORDERED: potassium Cl 20 mEq SR tablet PO PRN (13:40)
[2023-07-31] MEDS: potassium Cl 20 mEq SR tablet PO PRN (13:48)
[2023-07-31 18:00] VITALS: BP 143/91; PULSE 92; RESP 15; TEMP 98.9; O2SAT 93
[2023-07-31 20:00] VITALS: RESP 15; O2SAT 93
[2023-07-31 22:00] VITALS: BP 95/68; PULSE 127; RESP 19; TEMP 99; O2SAT 90
[2023-07-31] MEDS: morphine 2 MG/ML inj. syringe IV PRN (23:15)
[2023-08-01 06:00] VITALS: BP 123/69; PULSE 91; RESP 16; TEMP 97.9; O2SAT 97
[2023-08-01 06:12] LABS: ALBUMIN 1.8 G/DL (3.4-5.0); ANION GAP 9 (8-16); BLOOD UREA NITROGEN 29 MG/DL (7-18); BUN/CREATININE RATIO 15.3 (10.0-20.0); CALCIUM 7.5 MG/DL (8.5-10.1); CHLORIDE 107 MMOL/L (99-107); CREATININE 1.89 MG/DL (0.60-1.10); GLUCOSE 96 MG/DL (70-104); MAGNESIUM 1.3 MG/DL (1.5-2.4); PHOSPHORUS 2.3 MG/DL (2.3-4.5); POTASSIUM 3.7 MMOL/L (3.5-5.1); SODIUM 140 MMOL/L (135-145); TOTAL CARBON DIOXIDE 24.1 MMOL/L (24-32); eCRCL 37 ML/MIN; eGFR 35 ML/MIN
[2023-08-01 06:15] LABS: BASOPHILS # (AUTO) 0.1 X10'3 (0-0.2); BASOPHILS % (AUTO) 0.6 % (0-1); EOSINOPHILS # (AUTO) 0.3 X10'3 (0-0.9); EOSINOPHILS % (AUTO) 2.4 % (0-6); HEMATOCRIT 26.9 % (42.0-52.0); HEMOGLOBIN 8.7 g/dl (14.0-17.9); LYMPHOCYTES # (AUTO) 1.1 X10'3 (1.1-4.8); MEAN CORPUSCULAR HEMOGLOBIN 28.9 PG (27.0-31.0); MEAN CORPUSCULAR HGB CONC 32.5 g/dL (33.0-36.5); MEAN CORPUSCULAR VOLUME 88.9 FL (78-98); MEAN PLATELET VOLUME 7.5 FL (7.4-10.4); MONOCYTES # (AUTO) 0.6 X10'3 (0-0.9); MONOCYTES % (AUTO) 4.4 % (2-12); NEUTROPHILS # (AUTO) 11.2 X10'3 (1.8-7.7); NEUTROPHILS % (AUTO) 84.6 % (42-75); PLATELET COUNT 409 X10'3 (140-440); RED BLOOD COUNT 3.02 X10'6 (4.70-6.10); RED CELL DISTRIBUTION WIDTH 16.8 % (11.5-14.5); WHITE BLOOD COUNT 13.3 X10'3 (4.5-11.0)
[2023-08-01] MEDS: magnesium 2GM in 50ml NS 50 ML IV PRN (06:51)
[2023-08-01 10:00] VITALS: BP 107/58; PULSE 93; RESP 18; TEMP 98.1; O2SAT 91
[2023-08-01] MEDS: magnesium 4gm in 100ml NS 100 ML IV PRN (17:14)
[2023-08-01 18:00] VITALS: BP 105/65; PULSE 96; RESP 16; TEMP 98.4; O2SAT 95
[2023-08-01 22:00] VITALS: BP 100/63; PULSE 94; RESP 16; TEMP 98.2; O2SAT 93
[2023-08-02 06:00] VITALS: BP 113/63; PULSE 105; RESP 15; TEMP 97.5; O2SAT 97
[2023-08-02 10:10] LABS: BASOPHILS # (AUTO) 0.1 X10'3 (0-0.2); BASOPHILS % (AUTO) 0.7 % (0-1); EOSINOPHILS # (AUTO) 0.4 X10'3 (0-0.9); EOSINOPHILS % (AUTO) 2.9 % (0-6); HEMATOCRIT 27.6 % (42.0-52.0); HEMOGLOBIN 8.8 g/dl (14.0-17.9); LYMPHOCYTES # (AUTO) 1.1 X10'3 (1.1-4.8); LYMPHOCYTES % (AUTO) 9.1 % (21-51); MEAN CORPUSCULAR HEMOGLOBIN 28.6 PG (27.0-31.0); MEAN CORPUSCULAR HGB CONC 31.7 g/dL (33.0-36.5); MEAN PLATELET VOLUME 7.5 FL (7.4-10.4); MONOCYTES # (AUTO) 0.6 X10'3 (0-0.9); NEUTROPHILS # (AUTO) 10.2 X10'3 (1.8-7.7); NEUTROPHILS % (AUTO) 82.3 % (42-75); PLATELET COUNT 424 X10'3 (140-440); RED BLOOD COUNT 3.07 X10'6 (4.70-6.10); RED CELL DISTRIBUTION WIDTH 16.7 % (11.5-14.5); WHITE BLOOD COUNT 12.5 X10'3 (4.5-11.0)
[2023-08-02 10:31] LABS: ALANINE AMINOTRANSFERASE 11 U/L (12-78); ALBUMIN 1.8 G/DL (3.4-5.0); ALBUMIN/GLOBULIN RATIO 0.5 (1.1-1.5); ALKALINE PHOSPHATASE 84 IU/L (46-116); ANION GAP 7 (8-16); ASPARTATE AMINO TRANSFERASE 11 U/L (10-37); BLOOD UREA NITROGEN 28 MG/DL (7-18); BUN/CREATININE RATIO 14.7 (10.0-20.0); CALCIUM 7.8 MG/DL (8.5-10.1); CHLORIDE 107 MMOL/L (99-107); GLUCOSE 123 MG/DL (70-104); POTASSIUM 3.8 MMOL/L (3.5-5.1); SODIUM 139 MMOL/L (135-145); TOTAL CARBON DIOXIDE 24.8 MMOL/L (24-32); TOTAL PROTEIN 5.3 G/DL (6.4-8.2); eCRCL 36 ML/MIN; eGFR 35 ML/MIN
[2023-08-02 10:35] LABS: BILIRUBIN,TOTAL 0.1 MG/DL (0.1-1.0)
[2023-08-02] MEDS ORDERED: loperamide 2mg capsule PO PRN (16:35)
[2023-08-02 18:00] VITALS: BP 126/67; PULSE 105; RESP 16; TEMP 98.4; O2SAT 94
[2023-08-02 22:00] VITALS: BP 110/59; PULSE 104; RESP 18; TEMP 98.6; O2SAT 92
[2023-08-02] MEDS: ondansetron 4mg rapidly disintigrating tab PO PRN (22:13)
[2023-08-02] MEDS: acetaminophen 325mg/10.15ml oral unit dose solution NG PRN (22:13)
[2023-08-03 03:46] VITALS: BP 95/64; PULSE 71
[2023-08-03 06:00] VITALS: BP 113/63; PULSE 105; RESP 16; TEMP 97.5; O2SAT 97
[2023-08-03 06:46] LABS: BASOPHILS # (AUTO) 0.1 X10'3 (0-0.2); BASOPHILS % (AUTO) 0.7 % (0-1); EOSINOPHILS # (AUTO) 0.4 X10'3 (0-0.9); EOSINOPHILS % (AUTO) 3.5 % (0-6); HEMATOCRIT 25.9 % (42.0-52.0); HEMOGLOBIN 8.2 g/dl (14.0-17.9); LYMPHOCYTES # (AUTO) 1.2 X10'3 (1.1-4.8); LYMPHOCYTES % (AUTO) 11.5 % (21-51); MEAN CORPUSCULAR HEMOGLOBIN 28.4 PG (27.0-31.0); MEAN CORPUSCULAR HGB CONC 31.6 g/dL (33.0-36.5); MEAN CORPUSCULAR VOLUME 89.8 FL (78-98); MEAN PLATELET VOLUME 7.6 FL (7.4-10.4); MONOCYTES # (AUTO) 0.7 X10'3 (0-0.9); MONOCYTES % (AUTO) 6.5 % (2-12); NEUTROPHILS # (AUTO) 8.1 X10'3 (1.8-7.7); NEUTROPHILS % (AUTO) 77.8 % (42-75); PLATELET COUNT 448 X10'3 (140-440); RED BLOOD COUNT 2.88 X10'6 (4.70-6.10); RED CELL DISTRIBUTION WIDTH 16.5 % (11.5-14.5); WHITE BLOOD COUNT 10.5 X10'3 (4.5-11.0)
[2023-08-03 07:14] LABS: ALBUMIN 1.7 G/DL (3.4-5.0); ANION GAP 9 (8-16); BLOOD UREA NITROGEN 30 MG/DL (7-18); BUN/CREATININE RATIO 16.9 (10.0-20.0); CALCIUM 7.6 MG/DL (8.5-10.1); CHLORIDE 108 MMOL/L (99-107); CREATININE 1.77 MG/DL (0.60-1.10); GLUCOSE 94 MG/DL (70-104); MAGNESIUM 1.7 MG/DL (1.5-2.4); PHOSPHORUS 2.5 MG/DL (2.3-4.5); SODIUM 142 MMOL/L (135-145); TOTAL CARBON DIOXIDE 24.9 MMOL/L (24-32); eCRCL 39 ML/MIN; eGFR 38 ML/MIN
[2023-08-03 07:30] VITALS: RESP 16; O2SAT 91
[2023-08-03 10:00] VITALS: BP 107/59; PULSE 85; RESP 18; TEMP 97.8; O2SAT 96
[2023-08-03 18:00] VITALS: BP 108/47; PULSE 70; RESP 18; TEMP 98.3; O2SAT 94
[2023-08-03 22:00] VITALS: BP 94/47; PULSE 99; RESP 17; TEMP 98.7; O2SAT 92
[2023-08-04 06:00] VITALS: BP 97/53; PULSE 79; RESP 16; TEMP 98.1; O2SAT 93
[2023-08-04 08:00] VITALS: RESP 18; O2SAT 94
[2023-08-04 08:42] LABS: BASOPHILS # (AUTO) 0.1 X10'3 (0-0.2); BASOPHILS % (AUTO) 1.2 % (0-1); EOSINOPHILS # (AUTO) 0.4 X10'3 (0-0.9); EOSINOPHILS % (AUTO) 3.8 % (0-6); HEMATOCRIT 26.9 % (42.0-52.0); HEMOGLOBIN 8.8 g/dl (14.0-17.9); LYMPHOCYTES # (AUTO) 1.2 X10'3 (1.1-4.8); LYMPHOCYTES % (AUTO) 13.1 % (21-51); MEAN CORPUSCULAR HEMOGLOBIN 29.3 PG (27.0-31.0); MEAN CORPUSCULAR HGB CONC 32.7 g/dL (33.0-36.5); MEAN CORPUSCULAR VOLUME 89.6 FL (78-98); MEAN PLATELET VOLUME 7.1 FL (7.4-10.4); MONOCYTES # (AUTO) 0.6 X10'3 (0-0.9); NEUTROPHILS # (AUTO) 7.1 X10'3 (1.8-7.7); NEUTROPHILS % (AUTO) 75.9 % (42-75); PLATELET COUNT 492 X10'3 (140-440); WHITE BLOOD COUNT 9.4 X10'3 (4.5-11.0)
[2023-08-04 09:09] LABS: ALBUMIN 1.9 G/DL (3.4-5.0); ANION GAP 7 (8-16); BLOOD UREA NITROGEN 29 MG/DL (7-18); BUN/CREATININE RATIO 14.1 (10.0-20.0); CHLORIDE 105 MMOL/L (99-107); CREATININE 2.05 MG/DL (0.60-1.10); GLUCOSE 130 MG/DL (70-104); MAGNESIUM 1.6 MG/DL (1.5-2.4); PHOSPHORUS 2.6 MG/DL (2.3-4.5); POTASSIUM 4.5 MMOL/L (3.5-5.1); SODIUM 138 MMOL/L (135-145); TOTAL CARBON DIOXIDE 26.3 MMOL/L (24-32); eCRCL 34 ML/MIN; eGFR 32 ML/MIN
[2023-08-04 10:00] VITALS: BP 122/64; PULSE 80; RESP 18; TEMP 98.1; O2SAT 94
[2023-08-04 16:00] VITALS: BP 101/66; PULSE 102; RESP 16; TEMP 98; O2SAT 96
[2023-08-04 18:00] VITALS: BP 136/81; PULSE 92; RESP 18; TEMP 98.3; O2SAT 93
[2023-08-04 22:00] VITALS: BP 104/73; PULSE 67; RESP 16; TEMP 98; O2SAT 93
[2023-08-05 06:00] VITALS: BP 94/46; PULSE 86; RESP 16; TEMP 97.9; O2SAT 92
[2023-08-05 08:00] VITALS: RESP 16; O2SAT 94
[2023-08-05] MEDS ORDERED: cosyntropin 250mcg inj IV ONE ×2 (09:00→12:45)
[2023-08-05 10:00] VITALS: BP 109/56; PULSE 90; RESP 18; TEMP 98.6; O2SAT 95
[2023-08-05] MEDS: cosyntropin 250mcg inj IV ONE (15:38)
[2023-08-05 18:00] VITALS: BP 102/56; PULSE 75; RESP 18; TEMP 98.6; O2SAT 91
[2023-08-05 20:00] VITALS: RESP 18; O2SAT 91
[2023-08-05 22:00] VITALS: BP 95/55; PULSE 87; RESP 16; TEMP 98.1; O2SAT 93
[2023-08-06 06:30] VITALS: BP 109/56; PULSE 98; RESP 20; TEMP 97.8; O2SAT 93
[2023-08-06] MEDS: hydrocortisone 10mg tablet PO SCH (08:30)
[2023-08-06 10:00] VITALS: BP 108/61; PULSE 74; RESP 14; TEMP 98; O2SAT 95
[2023-08-06] MEDS ORDERED: hydrocortisone 10mg tablet PO SCH (12:30)
[2023-08-06 14:47] LABS: BASOPHILS # (AUTO) 0.1 X10'3 (0-0.2); BASOPHILS % (AUTO) 1.3 % (0-1); EOSINOPHILS # (AUTO) 0.2 X10'3 (0-0.9); EOSINOPHILS % (AUTO) 2.4 % (0-6); HEMATOCRIT 26.3 % (42.0-52.0); HEMOGLOBIN 8.5 g/dl (14.0-17.9); LYMPHOCYTES # (AUTO) 1.3 X10'3 (1.1-4.8); LYMPHOCYTES % (AUTO) 16.5 % (21-51); MEAN CORPUSCULAR HGB CONC 32.5 g/dL (33.0-36.5); MEAN CORPUSCULAR VOLUME 89.2 FL (78-98); MEAN PLATELET VOLUME 6.9 FL (7.4-10.4); MONOCYTES # (AUTO) 0.6 X10'3 (0-0.9); MONOCYTES % (AUTO) 8.1 % (2-12); NEUTROPHILS # (AUTO) 5.7 X10'3 (1.8-7.7); NEUTROPHILS % (AUTO) 71.7 % (42-75); PLATELET COUNT 507 X10'3 (140-440); RED BLOOD COUNT 2.94 X10'6 (4.70-6.10); RED CELL DISTRIBUTION WIDTH 16.6 % (11.5-14.5)
[2023-08-06 14:58] LABS: ANION GAP 9 (8-16); BLOOD UREA NITROGEN 41 MG/DL (7-18); BUN/CREATININE RATIO 21.8 (10.0-20.0); CALCIUM 8.1 MG/DL (8.5-10.1); CHLORIDE 106 MMOL/L (99-107); CREATININE 1.88 MG/DL (0.60-1.10); GLUCOSE 132 MG/DL (70-104); POTASSIUM 3.9 MMOL/L (3.5-5.1); SODIUM 139 MMOL/L (135-145); TOTAL CARBON DIOXIDE 24.1 MMOL/L (24-32); eCRCL 37 ML/MIN; eGFR 35 ML/MIN
[2023-08-06 18:30] VITALS: BP 105/63; PULSE 77; RESP 16; TEMP 98.1; O2SAT 95
[2023-08-06 22:30] VITALS: BP 88/53; PULSE 90; RESP 18; TEMP 98.8; O2SAT 92
[2023-08-07 06:00] VITALS: BP 141/72; PULSE 64; RESP 20; TEMP 97.6; O2SAT 95
[2023-08-07 08:59] VITALS: RESP 20
[2023-08-07 10:00] VITALS: BP 103/56; PULSE 78; RESP 16; TEMP 98; O2SAT 94
[2023-08-07 18:00] VITALS: BP 110/61; PULSE 78; RESP 16; TEMP 98.7; O2SAT 96
[2023-08-07 22:00] VITALS: BP 104/62; PULSE 71; RESP 15; TEMP 98.7; O2SAT 96
[2023-08-08] MEDS: ringers solution, lacted 1,000 ML IV ONE (05:17)
[2023-08-08 06:00] VITALS: BP_SYST 84; BP_SYST 87; BP_DIAS 43; BP_DIAS 52; PULSE 67; PULSE 77; RESP 14; RESP 16; TEMP 98; TEMP 98.5; O2SAT 95
[2023-08-08 08:50] VITALS: RESP 20
[2023-08-08 18:00] VITALS: BP 106/56; PULSE 60; RESP 16; TEMP 98.6; O2SAT 94
[2023-08-08 22:00] VITALS: BP 103/59; PULSE 77; RESP 15; TEMP 98.7; O2SAT 94
[2023-08-09 06:00] VITALS: BP 102/54; PULSE 93; RESP 16; TEMP 98; O2SAT 92
[2023-08-09 06:37] LABS: BASOPHILS # (AUTO) 0.1 X10'3 (0-0.2); BASOPHILS % (AUTO) 1.7 % (0-1); EOSINOPHILS # (AUTO) 0.4 X10'3 (0-0.9); EOSINOPHILS % (AUTO) 4.6 % (0-6); HEMATOCRIT 26.3 % (42.0-52.0); HEMOGLOBIN 8.5 g/dl (14.0-17.9); LYMPHOCYTES # (AUTO) 1.7 X10'3 (1.1-4.8); LYMPHOCYTES % (AUTO) 20.8 % (21-51); MEAN CORPUSCULAR HEMOGLOBIN 28.7 PG (27.0-31.0); MEAN CORPUSCULAR HGB CONC 32.5 g/dL (33.0-36.5); MEAN CORPUSCULAR VOLUME 88.5 FL (78-98); MEAN PLATELET VOLUME 6.7 FL (7.4-10.4); MONOCYTES # (AUTO) 0.5 X10'3 (0-0.9); MONOCYTES % (AUTO) 6.5 % (2-12); NEUTROPHILS # (AUTO) 5.3 X10'3 (1.8-7.7); NEUTROPHILS % (AUTO) 66.4 % (42-75); PLATELET COUNT 431 X10'3 (140-440); RED BLOOD COUNT 2.97 X10'6 (4.70-6.10); RED CELL DISTRIBUTION WIDTH 16.8 % (11.5-14.5)
[2023-08-09 06:59] LABS: ALANINE AMINOTRANSFERASE 17 U/L (12-78); ALBUMIN 2.1 G/DL (3.4-5.0); ALBUMIN/GLOBULIN RATIO 0.5 (1.1-1.5); ALKALINE PHOSPHATASE 103 IU/L (46-116); ANION GAP 3 (8-16); ASPARTATE AMINO TRANSFERASE 17 U/L (10-37); BILIRUBIN,TOTAL 0.2 MG/DL (0.1-1.0); BLOOD UREA NITROGEN 41 MG/DL (7-18); BUN/CREATININE RATIO 22.7 (10.0-20.0); CALCIUM 8.6 MG/DL (8.5-10.1); CHLORIDE 107 MMOL/L (99-107); CREATININE 1.81 MG/DL (0.60-1.10); GLUCOSE 94 MG/DL (70-104); MAGNESIUM 1.7 MG/DL (1.5-2.4); PHOSPHORUS 3.5 MG/DL (2.3-4.5); SODIUM 139 MMOL/L (135-145); TOTAL CARBON DIOXIDE 28.9 MMOL/L (24-32); TOTAL PROTEIN 6.1 G/DL (6.4-8.2); eCRCL 38 ML/MIN; eGFR 37 ML/MIN
[2023-08-09 08:45] VITALS: RESP 16
[2023-08-09 18:00] VITALS: BP 92/61; PULSE 70; RESP 16; TEMP 98.5; O2SAT 93
[2023-08-09 20:00] VITALS: RESP 16
[2023-08-09 20:50] VITALS: RESP 16; O2SAT 97
[2023-08-09 22:00] VITALS: BP 101/51; PULSE 118; RESP 16; TEMP 98.9; O2SAT 97
[2023-08-10 06:00] VITALS: BP 102/61; PULSE 53; RESP 16; TEMP 98.1; O2SAT 96
[2023-08-10 08:00] VITALS: RESP 16; O2SAT 96
[2023-08-10 10:00] VITALS: BP 99/64; PULSE 61; RESP 17; TEMP 98; O2SAT 90
[2023-08-10] MEDS: lactose-reduced food (Ensure High Protein) 237ml bottle PO SCH (11:20)
[2023-08-10 18:00] VITALS: BP 112/57; PULSE 65; RESP 18; TEMP 98.3; O2SAT 95
[2023-08-10 20:00] VITALS: RESP 18; O2SAT 95
[2023-08-10 22:00] VITALS: BP 90/51; PULSE 69; RESP 20; TEMP 98.3; O2SAT 92
[2023-08-11 06:00] VITALS: BP 94/55; PULSE 64; RESP 18; TEMP 97.7; O2SAT 92
[2023-08-11 08:00] VITALS: RESP 18; O2SAT 92
[2023-08-11 09:41] LABS: BASOPHILS # (AUTO) 0.1 X10'3 (0-0.2); BASOPHILS % (AUTO) 1.6 % (0-1); EOSINOPHILS # (AUTO) 0.5 X10'3 (0-0.9); EOSINOPHILS % (AUTO) 5.7 % (0-6); HEMATOCRIT 26.6 % (42.0-52.0); HEMOGLOBIN 8.7 g/dl (14.0-17.9); LYMPHOCYTES # (AUTO) 1.6 X10'3 (1.1-4.8); LYMPHOCYTES % (AUTO) 18.9 % (21-51); MEAN CORPUSCULAR HEMOGLOBIN 28.9 PG (27.0-31.0); MEAN CORPUSCULAR HGB CONC 32.5 g/dL (33.0-36.5); MEAN CORPUSCULAR VOLUME 88.8 FL (78-98); MEAN PLATELET VOLUME 6.9 FL (7.4-10.4); MONOCYTES # (AUTO) 0.4 X10'3 (0-0.9); MONOCYTES % (AUTO) 4.3 % (2-12); NEUTROPHILS # (AUTO) 5.8 X10'3 (1.8-7.7); NEUTROPHILS % (AUTO) 69.5 % (42-75); PLATELET COUNT 427 X10'3 (140-440); RED CELL DISTRIBUTION WIDTH 16.6 % (11.5-14.5); WHITE BLOOD COUNT 8.3 X10'3 (4.5-11.0)
[2023-08-11 10:00] VITALS: BP 96/53; PULSE 72; RESP 16; TEMP 98.5; O2SAT 93
[2023-08-11 10:01] LABS: ALANINE AMINOTRANSFERASE 21 U/L (12-78); ALBUMIN 2.2 G/DL (3.4-5.0); ALBUMIN/GLOBULIN RATIO 0.5 (1.1-1.5); ALKALINE PHOSPHATASE 109 IU/L (46-116); ANION GAP 8 (8-16); ASPARTATE AMINO TRANSFERASE 15 U/L (10-37); BILIRUBIN,TOTAL 0.2 MG/DL (0.1-1.0); BLOOD UREA NITROGEN 44 MG/DL (7-18); BUN/CREATININE RATIO 22.2 (10.0-20.0); CALCIUM 8.6 MG/DL (8.5-10.1); CHLORIDE 105 MMOL/L (99-107); CREATININE 1.98 MG/DL (0.60-1.10); GLUCOSE 146 MG/DL (70-104); MAGNESIUM 1.7 MG/DL (1.5-2.4); PHOSPHORUS 3.6 MG/DL (2.3-4.5); POTASSIUM 4.8 MMOL/L (3.5-5.1); SODIUM 138 MMOL/L (135-145); TOTAL CARBON DIOXIDE 25.4 MMOL/L (24-32); TOTAL PROTEIN 6.4 G/DL (6.4-8.2); eCRCL 35 ML/MIN; eGFR 33 ML/MIN
[2023-08-11 18:00] VITALS: BP 108/54; PULSE 69; RESP 16; TEMP 97.3; O2SAT 93
[2023-08-11 20:00] VITALS: RESP 18; O2SAT 96
[2023-08-11] MEDS: ringers solution, lacted 1,000 ML IV ONE (21:26)
[2023-08-11 22:00] VITALS: BP 107/58; PULSE 69; RESP 20; TEMP 98; O2SAT 93
[2023-08-12] VITALS (20 sets, daily range): BP systolic 84–121; BP diastolic 44–61; PULSE 63–93; RESP 12–20; TEMP 97.8–98.2; O2SAT 95–99
[2023-08-12] MEDS: famotidine 20mg tablet PO ONE (06:23)
[2023-08-12] MEDS ORDERED: iohexol 300 MG/1 ML 50ml polymer ONE (07:15)
[2023-08-12] MEDS ORDERED: proCHLORperazine 10 MG/2 ml inj IV PRN (08:05)
[2023-08-12] MEDS ORDERED: enalaprilat dihydrate 2.5mg/2ml vial IV PRN (08:05)
[2023-08-12] MEDS ORDERED: meperidine/PF 25mg/ml syringe IV PRN ×3 (08:05)
[2023-08-12] MEDS ORDERED: ondansetron/PF 4mg/2ml inj IV PRN (08:05)
[2023-08-12] MEDS ORDERED: morphine 4 MG/ML inj SYRINge IV PRN (08:05)
[2023-08-12] MEDS ORDERED: desflurane 240ml liquid inh. IH ONE (08:05)
[2023-08-12] MEDS ORDERED: morphine 2 MG/ML inj. syringe IV PRN (08:05)
[2023-08-12] MEDS ORDERED: LIDOcaine 2% (20mg/ml) 5ml vial ONE (08:05)
[2023-08-12] MEDS: ringers solution, lacted 1,000 ML IV SCH (08:05)
[2023-08-12] MEDS ORDERED: labetalol 20mg/4ml (5mg/ml) syringe IV PRN (08:05)
[2023-08-12] MEDS ORDERED: ePHEDrine 50MG/ML INJ. ONE (08:05)
[2023-08-12] MEDS ORDERED: midazolam 1 mg/ML 2ml injection ONE (08:12)
[2023-08-12] MEDS ORDERED: fentaNYL/PF 50MCG/1 ML 2ML syringe ONE (08:12)
[2023-08-12] MEDS: iohexol 300 MG/1 ML 10ml vial IV ONE (08:30)
[2023-08-12] MEDS ORDERED: phenylephrine 10mg/ml inj. -priapism dosing ONE (09:37)
[2023-08-12] MEDS ORDERED: propofol inj 20 ML IV ONE (09:37)
[2023-08-12 14:01] LABS: BASOPHILS # (AUTO) 0.1 X10'3 (0-0.2); EOSINOPHILS # (AUTO) 0.4 X10'3 (0-0.9); HEMATOCRIT 28.5 % (42.0-52.0); LYMPHOCYTES # (AUTO) 1.5 X10'3 (1.1-4.8); LYMPHOCYTES % (AUTO) 13.7 % (21-51); MEAN CORPUSCULAR HEMOGLOBIN 28.3 PG (27.0-31.0); MEAN CORPUSCULAR HGB CONC 31.7 g/dL (33.0-36.5); MEAN CORPUSCULAR VOLUME 89.3 FL (78-98); MEAN PLATELET VOLUME 6.9 FL (7.4-10.4); MONOCYTES # (AUTO) 0.7 X10'3 (0-0.9); MONOCYTES % (AUTO) 6.3 % (2-12); PLATELET COUNT 403 X10'3 (140-440); RED BLOOD COUNT 3.19 X10'6 (4.70-6.10); RED CELL DISTRIBUTION WIDTH 17.2 % (11.5-14.5); WHITE BLOOD COUNT 10.7 X10'3 (4.5-11.0)
[2023-08-12 14:12] LABS: ALANINE AMINOTRANSFERASE 16 U/L (12-78); ALBUMIN 2.4 G/DL (3.4-5.0); ALBUMIN/GLOBULIN RATIO 0.6 (1.1-1.5); ALKALINE PHOSPHATASE 121 IU/L (46-116); ANION GAP 5 (8-16); ASPARTATE AMINO TRANSFERASE 16 U/L (10-37); BILIRUBIN,TOTAL 0.2 MG/DL (0.1-1.0); BLOOD UREA NITROGEN 46 MG/DL (7-18); BUN/CREATININE RATIO 23.6 (10.0-20.0); CALCIUM 8.6 MG/DL (8.5-10.1); CHLORIDE 106 MMOL/L (99-107); CREATININE 1.95 MG/DL (0.60-1.10); GLUCOSE 91 MG/DL (70-104); MAGNESIUM 1.7 MG/DL (1.5-2.4); PHOSPHORUS 3.9 MG/DL (2.3-4.5); SODIUM 139 MMOL/L (135-145); TOTAL CARBON DIOXIDE 27.8 MMOL/L (24-32); TOTAL PROTEIN 6.7 G/DL (6.4-8.2); eCRCL 36 ML/MIN; eGFR 34 ML/MIN
[2023-08-12 16:56] LABS: % FREE PSA 14.7 % (.); PSA, FREE 0.44 ng/mL
[2023-08-13] VITALS (9 sets, daily range): BP systolic 86–134; BP diastolic 42–70; PULSE 69–114; RESP 15–24; TEMP 97.6–102.5; O2SAT 89–98
[2023-08-13] MEDS: acetaminophen 325mg tablet NG PRN (01:46)
[2023-08-13 06:21] LABS: ALANINE AMINOTRANSFERASE 17 U/L (12-78); ALBUMIN 2.3 G/DL (3.4-5.0); ALBUMIN/GLOBULIN RATIO 0.5 (1.1-1.5); ALKALINE PHOSPHATASE 111 IU/L (46-116); ANION GAP 10 (8-16); ASPARTATE AMINO TRANSFERASE 12 U/L (10-37); BILIRUBIN,TOTAL 0.2 MG/DL (0.1-1.0); BLOOD UREA NITROGEN 46 MG/DL (7-18); BUN/CREATININE RATIO 20.9 (10.0-20.0); CALCIUM 8.4 MG/DL (8.5-10.1); CHLORIDE 106 MMOL/L (99-107); GLUCOSE 122 MG/DL (70-104); MAGNESIUM 1.7 MG/DL (1.5-2.4); PHOSPHORUS 3.1 MG/DL (2.3-4.5); POTASSIUM 5.1 MMOL/L (3.5-5.1); SODIUM 138 MMOL/L (135-145); TOTAL CARBON DIOXIDE 21.7 MMOL/L (24-32); TOTAL PROTEIN 6.5 G/DL (6.4-8.2); eCRCL 32 ML/MIN; eGFR 29 ML/MIN
[2023-08-13 06:30] LABS: BASOPHILS # (AUTO) 0.1 X10'3 (0-0.2); BASOPHILS % (AUTO) 0.2 % (0-1); EOSINOPHILS # (AUTO) 0.1 X10'3 (0-0.9); EOSINOPHILS % (AUTO) 0.2 % (0-6); HEMOGLOBIN 8.5 g/dl (14.0-17.9); LYMPHOCYTES # (AUTO) 0.8 X10'3 (1.1-4.8); LYMPHOCYTES % (AUTO) 2.6 % (21-51); MEAN CORPUSCULAR HEMOGLOBIN 28.1 PG (27.0-31.0); MEAN CORPUSCULAR HGB CONC 31.5 g/dL (33.0-36.5); MEAN CORPUSCULAR VOLUME 89.3 FL (78-98); MEAN PLATELET VOLUME 7.5 FL (7.4-10.4); MONOCYTES # (AUTO) 1.2 X10'3 (0-0.9); MONOCYTES % (AUTO) 3.7 % (2-12); NEUTROPHILS # (AUTO) 28.9 X10'3 (1.8-7.7); NEUTROPHILS % (AUTO) 93.3 % (42-75); PLATELET COUNT 380 X10'3 (140-440); RED BLOOD COUNT 3.02 X10'6 (4.70-6.10); RED CELL DISTRIBUTION WIDTH 17.2 % (11.5-14.5)
[2023-08-13 06:41] LABS: WHITE BLOOD COUNT 30.9 X10'3 (4.5-11.0)
[2023-08-13 07:12] LABS: PLATELET ESTIMATE NORMAL; TOTAL CELLS COUNTED 100
[2023-08-13 07:13] LABS: ANISOCYTOSIS 1+; POIKILOCYTOSIS FEW; POLYCHROMASIA FEW; TOXIC GRANULATION 1+
[2023-08-13] MEDS: piperacillin/tazo 3.375gm/50ml 50 ML IV SCH (08:00)
[2023-08-13] MEDS: apixaban 5mg tablet PO SCH (08:44)
[2023-08-13] MEDS: midodrine 5mg tablet PO ONE (12:45)
[2023-08-13] MEDS: normal saline 500ml IV soln 500 ML IV ONE ×2 (12:47→16:10)
[2023-08-13] MEDS: normal saline 1000ml 1,000 ML IV SCH (15:24)
[2023-08-13] MEDS: midodrine 5mg tablet NG SCH (15:24)
[2023-08-13 15:37] LABS: BASOPHILS # (AUTO) 0.1 X10'3 (0-0.2); BASOPHILS % (AUTO) 0.1 % (0-1); EOSINOPHILS % (AUTO) 0 % (0-6); HEMOGLOBIN 7.5 g/dl (14.0-17.9); LYMPHOCYTES % (AUTO) 2.5 % (21-51); MEAN CORPUSCULAR HEMOGLOBIN 27.8 PG (27.0-31.0); MEAN CORPUSCULAR HGB CONC 31.3 g/dL (33.0-36.5); MEAN CORPUSCULAR VOLUME 88.8 FL (78-98); MONOCYTES # (AUTO) 1.6 X10'3 (0-0.9); NEUTROPHILS # (AUTO) 38.4 X10'3 (1.8-7.7); NEUTROPHILS % (AUTO) 93.4 % (42-75); PLATELET COUNT 322 X10'3 (140-440); RED CELL DISTRIBUTION WIDTH 16.6 % (11.5-14.5)
[2023-08-13 15:41] LABS: WHITE BLOOD COUNT 41.1 X10'3 (4.5-11.0)
[2023-08-13 16:08] LABS: ANISOCYTOSIS 1+; PLATELET ESTIMATE NORMAL; TOTAL CELLS COUNTED 100
[2023-08-13 16:09] LABS: POIKILOCYTOSIS FEW
[2023-08-13] MEDS ORDERED: albumin (Human) 5% 250ml 250 ML IV SCH ×2 (16:10→17:25)
[2023-08-13] MEDS ORDERED: albumin (Human) 5% 250ml 250 ML IV ONE (16:35)
[2023-08-13] MEDS: ringers solution, lacted 1,000 ML IV ONE ×2 (16:43→18:56)
[2023-08-13] MEDS: albumin (human) 25% 100 ML IV solution IV ONE ×4 (17:12→20:28)
[2023-08-13] MEDS ORDERED: albumin (human) 25% 100ml IV 100 ML IV SCH (17:25)
[2023-08-13] MEDS: diatr meglu/diatrizoate 30ml oral sol.-(3 dose) bottle PO SCH ×2 (19:11→22:28)
[2023-08-13] MEDS: ringers solution, lacted 1,000 ML IV SCH (19:58)
[2023-08-13] MEDS: albumin (Human) 5% 250ml 250 ML IV SCH (21:18)
[2023-08-14 03:00] VITALS: BP 94/61; PULSE 64; RESP 15; TEMP 98; O2SAT 93
[2023-08-14 05:57] LABS: BASOPHILS # (AUTO) 0.1 X10'3 (0-0.2); BASOPHILS % (AUTO) 0.2 % (0-1); EOSINOPHILS # (AUTO) 0.1 X10'3 (0-0.9); EOSINOPHILS % (AUTO) 0.2 % (0-6); LYMPHOCYTES # (AUTO) 1.4 X10'3 (1.1-4.8); LYMPHOCYTES % (AUTO) 5.4 % (21-51); MEAN CORPUSCULAR HEMOGLOBIN 27.9 PG (27.0-31.0); MEAN CORPUSCULAR HGB CONC 31.4 g/dL (33.0-36.5); MEAN CORPUSCULAR VOLUME 88.7 FL (78-98); MEAN PLATELET VOLUME 7.3 FL (7.4-10.4); MONOCYTES % (AUTO) 3.7 % (2-12); NEUTROPHILS # (AUTO) 24.4 X10'3 (1.8-7.7); NEUTROPHILS % (AUTO) 90.5 % (42-75); PLATELET COUNT 256 X10'3 (140-440); RED BLOOD COUNT 2.43 X10'6 (4.70-6.10)
[2023-08-14 06:00] VITALS: BP 93/53; PULSE 93; RESP 12; TEMP 99.9; O2SAT 93
[2023-08-14 06:02] LABS: WHITE BLOOD COUNT 26.9 X10'3 (4.5-11.0)
[2023-08-14 06:06] LABS: HEMATOCRIT 21.5 % (42.0-52.0); HEMOGLOBIN 6.8 g/dl (14.0-17.9)
[2023-08-14 06:25] LABS: ALANINE AMINOTRANSFERASE 14 U/L (12-78); ALBUMIN 2.6 G/DL (3.4-5.0); ALBUMIN/GLOBULIN RATIO 0.7 (1.1-1.5); ALKALINE PHOSPHATASE 78 IU/L (46-116); ANION GAP 12 (8-16); ASPARTATE AMINO TRANSFERASE 9 U/L (10-37); BILIRUBIN,TOTAL 0.3 MG/DL (0.1-1.0); BLOOD UREA NITROGEN 47 MG/DL (7-18); BUN/CREATININE RATIO 22.3 (10.0-20.0); C-REACTIVE PROTEIN 18.86 MG/DL (0.0-0.5); CALCIUM 8.3 MG/DL (8.5-10.1); CHLORIDE 105 MMOL/L (99-107); CREATININE 2.11 MG/DL (0.60-1.10); GLUCOSE 112 MG/DL (70-104); MAGNESIUM 1.7 MG/DL (1.5-2.4); PHOSPHORUS 4.2 MG/DL (2.3-4.5); POTASSIUM 4.8 MMOL/L (3.5-5.1); SODIUM 139 MMOL/L (135-145); TOTAL CARBON DIOXIDE 22.3 MMOL/L (24-32); TOTAL PROTEIN 6.1 G/DL (6.4-8.2); eCRCL 33 ML/MIN; eGFR 31 ML/MIN
[2023-08-14 08:24] LABS: ANISOCYTOSIS 1+; PLATELET ESTIMATE NORMAL; TOTAL CELLS COUNTED 100
[2023-08-14 08:25] LABS: BURR CELLS FEW; ELLIPTOCYTES FEW
[2023-08-14 10:00] VITALS: BP 116/51; PULSE 81; RESP 17; TEMP 99.1; O2SAT 93
[2023-08-14] MEDS: midodrine 5mg tablet PO SCH (15:53)
[2023-08-14 18:00] VITALS: BP 107/48; PULSE 73; RESP 17; TEMP 98.7; O2SAT 95
[2023-08-14] MEDS: metroNIDAZOLE-Flagyl 500mg/NS 100 ML IV SCH (20:32)
[2023-08-14 22:00] VITALS: BP 134/49; PULSE 75; RESP 16; TEMP 98.6; O2SAT 93
[2023-08-15 06:00] VITALS: BP 117/55; PULSE 59; RESP 17; TEMP 97.9; O2SAT 91
[2023-08-15 06:26] LABS: BASOPHILS # (AUTO) 0.1 X10'3 (0-0.2); BASOPHILS % (AUTO) 0.4 % (0-1); EOSINOPHILS # (AUTO) 0.3 X10'3 (0-0.9); EOSINOPHILS % (AUTO) 2.8 % (0-6); LYMPHOCYTES # (AUTO) 1.2 X10'3 (1.1-4.8); LYMPHOCYTES % (AUTO) 10.1 % (21-51); MEAN CORPUSCULAR HEMOGLOBIN 28.1 PG (27.0-31.0); MEAN CORPUSCULAR HGB CONC 31.7 g/dL (33.0-36.5); MEAN CORPUSCULAR VOLUME 88.5 FL (78-98); MEAN PLATELET VOLUME 7.5 FL (7.4-10.4); MONOCYTES # (AUTO) 0.5 X10'3 (0-0.9); MONOCYTES % (AUTO) 4.3 % (2-12); NEUTROPHILS # (AUTO) 9.8 X10'3 (1.8-7.7); NEUTROPHILS % (AUTO) 82.4 % (42-75); PLATELET COUNT 255 X10'3 (140-440); RED BLOOD COUNT 2.31 X10'6 (4.70-6.10); RED CELL DISTRIBUTION WIDTH 17.3 % (11.5-14.5); WHITE BLOOD COUNT 11.9 X10'3 (4.5-11.0)
[2023-08-15 06:44] LABS: HEMATOCRIT 20.4 % (42.0-52.0); HEMOGLOBIN 6.5 g/dl (14.0-17.9)
[2023-08-15 06:45] LABS: ALANINE AMINOTRANSFERASE 10 U/L (12-78); ALBUMIN 2.6 G/DL (3.4-5.0); ALBUMIN/GLOBULIN RATIO 0.8 (1.1-1.5); ALKALINE PHOSPHATASE 76 IU/L (46-116); ANION GAP 9 (8-16); ASPARTATE AMINO TRANSFERASE 10 U/L (10-37); BILIRUBIN,TOTAL 0.3 MG/DL (0.1-1.0); BLOOD UREA NITROGEN 46 MG/DL (7-18); BUN/CREATININE RATIO 21.4 (10.0-20.0); CALCIUM 8.3 MG/DL (8.5-10.1); CHLORIDE 107 MMOL/L (99-107); CREATININE 2.15 MG/DL (0.60-1.10); GLUCOSE 95 MG/DL (70-104); MAGNESIUM 1.7 MG/DL (1.5-2.4); PHOSPHORUS 4.1 MG/DL (2.3-4.5); POTASSIUM 4.5 MMOL/L (3.5-5.1); SODIUM 138 MMOL/L (135-145); TOTAL CARBON DIOXIDE 22.2 MMOL/L (24-32); eCRCL 32 ML/MIN; eGFR 30 ML/MIN
[2023-08-15] MEDS: acetaminophen 325mg tablet PO PRN (08:28)
[2023-08-15] MEDS ORDERED: acetaminophen 325mg tablet PO PRN (12:10)
[2023-08-15] MEDS: furosemide 20 MG/2 ML vial IV ONE (14:13)
[2023-08-15 14:19] LABS: PRO BRAIN NATRIURETIC PEPTIDE 24256 PG/ML (0-125)
[2023-08-15] MEDS: fludrocortisone acetate 0.1mg tablet PO ONE (15:18)
[2023-08-15 18:00] VITALS: BP 128/63; PULSE 65; RESP 18; TEMP 98.3; O2SAT 93
[2023-08-15 21:00] VITALS: RESP 16; O2SAT 92
[2023-08-15 22:00] VITALS: BP 139/60; PULSE 71; RESP 16; TEMP 98.6; O2SAT 91
[2023-08-16 06:00] VITALS: BP 125/62; PULSE 67; RESP 15; TEMP 97.6; O2SAT 93
[2023-08-16 06:20] LABS: BASOPHILS # (AUTO) 0.1 X10'3 (0-0.2); BASOPHILS % (AUTO) 0.9 % (0-1); EOSINOPHILS # (AUTO) 0.5 X10'3 (0-0.9); HEMATOCRIT 23.3 % (42.0-52.0); HEMOGLOBIN 7.5 g/dl (14.0-17.9); LYMPHOCYTES # (AUTO) 1.3 X10'3 (1.1-4.8); LYMPHOCYTES % (AUTO) 10.9 % (21-51); MEAN CORPUSCULAR HGB CONC 32.3 g/dL (33.0-36.5); MEAN CORPUSCULAR VOLUME 89.6 FL (78-98); MEAN PLATELET VOLUME 7.5 FL (7.4-10.4); MONOCYTES # (AUTO) 0.5 X10'3 (0-0.9); MONOCYTES % (AUTO) 4.1 % (2-12); NEUTROPHILS # (AUTO) 9.4 X10'3 (1.8-7.7); NEUTROPHILS % (AUTO) 80.1 % (42-75); PLATELET COUNT 339 X10'3 (140-440); WHITE BLOOD COUNT 11.7 X10'3 (4.5-11.0)
[2023-08-16 06:21] LABS: ALANINE AMINOTRANSFERASE 11 U/L (12-78); ALBUMIN 2.6 G/DL (3.4-5.0); ALBUMIN/GLOBULIN RATIO 0.8 (1.1-1.5); ALKALINE PHOSPHATASE 88 IU/L (46-116); ANION GAP 9 (8-16); ASPARTATE AMINO TRANSFERASE 10 U/L (10-37); BILIRUBIN,TOTAL 0.2 MG/DL (0.1-1.0); BLOOD UREA NITROGEN 41 MG/DL (7-18); CALCIUM 8.3 MG/DL (8.5-10.1); CHLORIDE 107 MMOL/L (99-107); CREATININE 2.05 MG/DL (0.60-1.10); GLUCOSE 94 MG/DL (70-104); MAGNESIUM 1.7 MG/DL (1.5-2.4); POTASSIUM 4.1 MMOL/L (3.5-5.1); SODIUM 138 MMOL/L (135-145); TOTAL CARBON DIOXIDE 21.8 MMOL/L (24-32); eCRCL 34 ML/MIN; eGFR 32 ML/MIN
[2023-08-16] MEDS: amiodarone 200mg tablet PO SCH (07:41)
[2023-08-16] MEDS: fludrocortisone acetate 0.1mg tablet PO SCH (07:45)
[2023-08-16] MEDS: piperacillin/tazo 3.375gm/50ml 50 ML IV SCH (08:00)
[2023-08-16 10:00] VITALS: BP 116/76; PULSE 84; RESP 18; TEMP 97.9; O2SAT 91
[2023-08-16 11:07] LABS: OCCULT BLOOD STOOL NEGATIVE (Neg)
[2023-08-16] MEDS: levoFLOXACIN 250mg tablet PO SCH (11:22)
[2023-08-16 18:00] VITALS: BP 127/79; PULSE 66; RESP 16; TEMP 98.4; O2SAT 91
[2023-08-16 22:00] VITALS: BP 142/89; PULSE 82; RESP 18; TEMP 98.6; O2SAT 94
[2023-08-17 06:00] VITALS: BP 138/48; PULSE 85; RESP 17; TEMP 98; O2SAT 97
[2023-08-17 07:09] LABS: BASOPHILS # (AUTO) 0.1 X10'3 (0-0.2); BASOPHILS % (AUTO) 0.6 % (0-1); EOSINOPHILS # (AUTO) 0.3 X10'3 (0-0.9); EOSINOPHILS % (AUTO) 2.5 % (0-6); HEMATOCRIT 24.7 % (42.0-52.0); HEMOGLOBIN 8.1 g/dl (14.0-17.9); LYMPHOCYTES # (AUTO) 1.4 X10'3 (1.1-4.8); LYMPHOCYTES % (AUTO) 13.3 % (21-51); MEAN CORPUSCULAR HEMOGLOBIN 28.8 PG (27.0-31.0); MEAN CORPUSCULAR HGB CONC 32.7 g/dL (33.0-36.5); MEAN CORPUSCULAR VOLUME 88.3 FL (78-98); MEAN PLATELET VOLUME 7.3 FL (7.4-10.4); MONOCYTES # (AUTO) 0.5 X10'3 (0-0.9); MONOCYTES % (AUTO) 4.5 % (2-12); NEUTROPHILS # (AUTO) 8.1 X10'3 (1.8-7.7); NEUTROPHILS % (AUTO) 79.1 % (42-75); PLATELET COUNT 382 X10'3 (140-440); RED BLOOD COUNT 2.79 X10'6 (4.70-6.10); RED CELL DISTRIBUTION WIDTH 16.7 % (11.5-14.5); WHITE BLOOD COUNT 10.2 X10'3 (4.5-11.0)
[2023-08-17 07:10] LABS: ALANINE AMINOTRANSFERASE 11 U/L (12-78); ALBUMIN 2.7 G/DL (3.4-5.0); ALBUMIN/GLOBULIN RATIO 0.8 (1.1-1.5); ALKALINE PHOSPHATASE 87 IU/L (46-116); ANION GAP 9 (8-16); ASPARTATE AMINO TRANSFERASE 7 U/L (10-37); BILIRUBIN,TOTAL 0.3 MG/DL (0.1-1.0); BLOOD UREA NITROGEN 35 MG/DL (7-18); BUN/CREATININE RATIO 17.7 (10.0-20.0); CALCIUM 8.4 MG/DL (8.5-10.1); CHLORIDE 107 MMOL/L (99-107); CREATININE 1.98 MG/DL (0.60-1.10); GLUCOSE 96 MG/DL (70-104); MAGNESIUM 1.6 MG/DL (1.5-2.4); PHOSPHORUS 3.4 MG/DL (2.3-4.5); POTASSIUM 3.8 MMOL/L (3.5-5.1); SODIUM 141 MMOL/L (135-145); TOTAL PROTEIN 6.2 G/DL (6.4-8.2); eCRCL 35 ML/MIN; eGFR 33 ML/MIN
[2023-08-17 08:00] VITALS: RESP 17; O2SAT 97
[2023-08-17] MEDS: fludrocortisone acetate 0.1mg tablet PO SCH (09:08)
[2023-08-17 10:00] VITALS: BP 112/73; PULSE 68; RESP 16; TEMP 98.2; O2SAT 98
[2023-08-17] MEDS: midodrine 5mg tablet PO SCH (11:47)
[2023-08-17 18:00] VITALS: BP 120/66; PULSE 69; RESP 16; TEMP 97.9; O2SAT 92
[2023-08-17 20:00] VITALS: RESP 16; O2SAT 94
[2023-08-17 22:00] VITALS: BP 122/63; PULSE 86; RESP 16; TEMP 98.2; O2SAT 94
[2023-08-18 04:17] LABS: BILIRUBIN,URINE SMALL (Neg); CLARITY,URINE CLOUDY (Clear); GLUCOSE, URINE NEGATIVE (Neg); KETONES,URINE NEGATIVE (Neg); LEUKOCYTE ESTERASE ,URINE MODERATE (Neg); OCCULT BLOOD,URINE LARGE (Neg); PROTEIN,URINE 100 mg/dl (Neg); UROBILINOGEN,URINE 0.2 E.U/dL (0.2-1.0)
[2023-08-18 04:18] LABS: COLOR,URINE DARK YELLOW (Yellow); NITRITES, URINE NEGATIVE (Neg); UA COLLECTION TYPE NON-SPECIFIED
[2023-08-18 04:25] LABS: MUCUS STRANDS NONE SEEN /LPF (Neg); RBC,URINE TNTC /HPF (0-2); RENAL CELLS, URINE FEW /HPF; SQUAMOUS EPITHELIAL CELL,UR FEW /LPF (FEW); WBC,URINE 50-100 /HPF (0-4)
[2023-08-18 04:26] LABS: BACTERIA,URINE 3+ /HPF (Neg)
[2023-08-18 04:27] LABS: WBC CLUMPS,URINE MODERATE /HPF (NEGATIVE)
[2023-08-18 06:00] VITALS: BP 137/71; PULSE 103; RESP 16; TEMP 98; O2SAT 94
[2023-08-18 08:00] VITALS: RESP 16; O2SAT 94
[2023-08-18 09:05] LABS: BASOPHILS # (AUTO) 0.1 X10'3 (0-0.2); BASOPHILS % (AUTO) 0.8 % (0-1); EOSINOPHILS # (AUTO) 0.4 X10'3 (0-0.9); EOSINOPHILS % (AUTO) 3.7 % (0-6); HEMATOCRIT 27.1 % (42.0-52.0); HEMOGLOBIN 8.8 g/dl (14.0-17.9); LYMPHOCYTES # (AUTO) 1.7 X10'3 (1.1-4.8); LYMPHOCYTES % (AUTO) 15.4 % (21-51); MEAN CORPUSCULAR HEMOGLOBIN 28.5 PG (27.0-31.0); MEAN CORPUSCULAR HGB CONC 32.6 g/dL (33.0-36.5); MEAN CORPUSCULAR VOLUME 87.4 FL (78-98); MEAN PLATELET VOLUME 7.3 FL (7.4-10.4); MONOCYTES # (AUTO) 0.6 X10'3 (0-0.9); MONOCYTES % (AUTO) 5.9 % (2-12); NEUTROPHILS % (AUTO) 74.2 % (42-75); PLATELET COUNT 445 X10'3 (140-440); RED CELL DISTRIBUTION WIDTH 16.8 % (11.5-14.5); WHITE BLOOD COUNT 10.9 X10'3 (4.5-11.0)
[2023-08-18 09:32] LABS: ALANINE AMINOTRANSFERASE 10 U/L (12-78); ALBUMIN 2.7 G/DL (3.4-5.0); ALBUMIN/GLOBULIN RATIO 0.7 (1.1-1.5); ALKALINE PHOSPHATASE 88 IU/L (46-116); ANION GAP 9 (8-16); ASPARTATE AMINO TRANSFERASE 7 U/L (10-37); BILIRUBIN,TOTAL 0.2 MG/DL (0.1-1.0); BLOOD UREA NITROGEN 29 MG/DL (7-18); BUN/CREATININE RATIO 13.9 (10.0-20.0); CALCIUM 8.5 MG/DL (8.5-10.1); CHLORIDE 106 MMOL/L (99-107); CREATININE 2.09 MG/DL (0.60-1.10); GLUCOSE 131 MG/DL (70-104); POTASSIUM 3.6 MMOL/L (3.5-5.1); SODIUM 140 MMOL/L (135-145); TOTAL CARBON DIOXIDE 24.7 MMOL/L (24-32); TOTAL PROTEIN 6.5 G/DL (6.4-8.2); eCRCL 33 ML/MIN; eGFR 31 ML/MIN
[2023-08-18 10:00] VITALS: BP 140/76; PULSE 76; RESP 18; TEMP 98.3; O2SAT 92
[2023-08-18] MEDS: guaiFENesin ER 600mg tablet PO ONE (11:35)
[2023-08-18 18:00] VITALS: BP 151/75; PULSE 96; RESP 16; TEMP 98.6; O2SAT 92
[2023-08-18 20:00] VITALS: RESP 17; O2SAT 90
[2023-08-18] MEDS: LidoCAINE 2% Topical Jelly 11mL syringe (UROJET) TOP ONE (20:53)
[2023-08-18 22:00] VITALS: BP 160/60; PULSE 99; RESP 17; TEMP 98.2; O2SAT 90
[2023-08-19 06:00] VITALS: BP 126/71; PULSE 62; RESP 16; TEMP 98.7; O2SAT 97
[2023-08-19 07:11] LABS: BASOPHILS # (AUTO) 0.1 X10'3 (0-0.2); BASOPHILS % (AUTO) 0.7 % (0-1); EOSINOPHILS # (AUTO) 0.4 X10'3 (0-0.9); EOSINOPHILS % (AUTO) 3.9 % (0-6); HEMATOCRIT 26.9 % (42.0-52.0); HEMOGLOBIN 8.7 g/dl (14.0-17.9); LYMPHOCYTES # (AUTO) 1.6 X10'3 (1.1-4.8); LYMPHOCYTES % (AUTO) 17.2 % (21-51); MEAN CORPUSCULAR HEMOGLOBIN 28.5 PG (27.0-31.0); MEAN CORPUSCULAR HGB CONC 32.5 g/dL (33.0-36.5); MEAN CORPUSCULAR VOLUME 87.8 FL (78-98); MEAN PLATELET VOLUME 7.2 FL (7.4-10.4); MONOCYTES # (AUTO) 0.6 X10'3 (0-0.9); MONOCYTES % (AUTO) 6.4 % (2-12); NEUTROPHILS # (AUTO) 6.9 X10'3 (1.8-7.7); NEUTROPHILS % (AUTO) 71.8 % (42-75); PLATELET COUNT 445 X10'3 (140-440); RED BLOOD COUNT 3.06 X10'6 (4.70-6.10); RED CELL DISTRIBUTION WIDTH 16.8 % (11.5-14.5); WHITE BLOOD COUNT 9.6 X10'3 (4.5-11.0)
[2023-08-19 07:31] LABS: ALANINE AMINOTRANSFERASE 10 U/L (12-78); ALBUMIN 2.6 G/DL (3.4-5.0); ALBUMIN/GLOBULIN RATIO 0.7 (1.1-1.5); ALKALINE PHOSPHATASE 83 IU/L (46-116); ANION GAP 8 (8-16); ASPARTATE AMINO TRANSFERASE 8 U/L (10-37); BILIRUBIN,TOTAL 0.2 MG/DL (0.1-1.0); BLOOD UREA NITROGEN 30 MG/DL (7-18); BUN/CREATININE RATIO 14.6 (10.0-20.0); CALCIUM 8.2 MG/DL (8.5-10.1); CHLORIDE 108 MMOL/L (99-107); CREATININE 2.06 MG/DL (0.60-1.10); GLUCOSE 91 MG/DL (70-104); POTASSIUM 3.9 MMOL/L (3.5-5.1); SODIUM 142 MMOL/L (135-145); TOTAL CARBON DIOXIDE 25.9 MMOL/L (24-32); TOTAL PROTEIN 6.2 G/DL (6.4-8.2); eCRCL 34 ML/MIN; eGFR 32 ML/MIN
[2023-08-19 08:00] VITALS: RESP 16; O2SAT 97
[2023-08-19] MEDS: levoFLOXACIN 750MG TABLET PO SCH (11:58)
[2023-08-19 16:40] VITALS: RESP 14; O2SAT 99
[2023-08-19 18:00] VITALS: BP 129/75; PULSE 88; RESP 16; TEMP 98.2; O2SAT 92
[2023-08-19 20:00] VITALS: RESP 16; O2SAT 92
[2023-08-19 22:00] VITALS: BP 120/74; PULSE 68; RESP 16; TEMP 97.9; O2SAT 94
[2023-08-20 06:39] VITALS: BP 114/62; PULSE 67; RESP 16; TEMP 97.5; O2SAT 97
[2023-08-20 08:00] VITALS: RESP 16
[2023-08-20 09:00] VITALS: RESP 18
[2023-08-20 09:36] LABS: BASOPHILS # (AUTO) 0.1 X10'3 (0-0.2); BASOPHILS % (AUTO) 0.8 % (0-1); EOSINOPHILS # (AUTO) 0.4 X10'3 (0-0.9); EOSINOPHILS % (AUTO) 4.3 % (0-6); HEMATOCRIT 26.2 % (42.0-52.0); HEMOGLOBIN 8.5 g/dl (14.0-17.9); LYMPHOCYTES # (AUTO) 1.5 X10'3 (1.1-4.8); LYMPHOCYTES % (AUTO) 16.9 % (21-51); MEAN CORPUSCULAR HEMOGLOBIN 28.9 PG (27.0-31.0); MEAN CORPUSCULAR HGB CONC 32.5 g/dL (33.0-36.5); MEAN PLATELET VOLUME 7.1 FL (7.4-10.4); MONOCYTES # (AUTO) 0.4 X10'3 (0-0.9); MONOCYTES % (AUTO) 4.8 % (2-12); NEUTROPHILS # (AUTO) 6.4 X10'3 (1.8-7.7); NEUTROPHILS % (AUTO) 73.2 % (42-75); PLATELET COUNT 453 X10'3 (140-440); RED BLOOD COUNT 2.94 X10'6 (4.70-6.10); RED CELL DISTRIBUTION WIDTH 16.7 % (11.5-14.5); WHITE BLOOD COUNT 8.8 X10'3 (4.5-11.0)
[2023-08-20 09:44] LABS: ALANINE AMINOTRANSFERASE 13 U/L (12-78); ALBUMIN 2.7 G/DL (3.4-5.0); ALBUMIN/GLOBULIN RATIO 0.8 (1.1-1.5); ALKALINE PHOSPHATASE 78 IU/L (46-116); ANION GAP 8 (8-16); ASPARTATE AMINO TRANSFERASE 9 U/L (10-37); BILIRUBIN,TOTAL 0.2 MG/DL (0.1-1.0); BLOOD UREA NITROGEN 31 MG/DL (7-18); BUN/CREATININE RATIO 15.6 (10.0-20.0); CALCIUM 7.1 MG/DL (8.5-10.1); CHLORIDE 107 MMOL/L (99-107); CREATININE 1.99 MG/DL (0.60-1.10); GLUCOSE 126 MG/DL (70-104); SODIUM 141 MMOL/L (135-145); TOTAL CARBON DIOXIDE 26.3 MMOL/L (24-32); TOTAL PROTEIN 6.1 G/DL (6.4-8.2); eCRCL 35 ML/MIN; eGFR 33 ML/MIN
[2023-08-20] MEDS ORDERED: VANC125C5 PO (12:34)
[2023-08-20] MEDS ORDERED: LACT1CAP26 PO (12:34)
[2023-08-20] MEDS ORDERED: FLUD0.1T PO (12:34)
[2023-08-20] MEDS ORDERED: LEVO750T68 PO (12:34)
== END 2023-08-20 15:50 | disposition home or self-care (01) | DRG 853 ==
LOC: ER 13:02 → ED HOLD 15:08 → CICU 2S 07-23 02:00 → PCU 3S 07-27 11:26 → ORTHO 4S 07-28 19:42
PROVIDERS: ADMIT Internal Medicine; ATTEND Internal Medicine
PROC: 02HV33Z Insertion of Infusion Device into Superior Vena Cava, Percutaneous Approach (ICD-10-PCS; 2023-07-22)
PROC: B548ZZA Ultrasonography of Superior Vena Cava, Guidance (ICD-10-PCS; 2023-07-22)
PROC: 0T788DZ Dilation of Bilateral Ureters with Intraluminal Device, Via Natural or Artificial Opening Endoscopic (ICD-10-PCS; principal; 2023-08-13)
PROC: 0TBC8ZX Excision of Bladder Neck, Via Natural or Artificial Opening Endoscopic, Diagnostic (ICD-10-PCS; 2023-08-13)
PROC: BT141ZZ Fluoroscopy of Kidneys, Ureters and Bladder using Low Osmolar Contrast (ICD-10-PCS; 2023-08-13)
PROC: 0VB08ZX Excision of Prostate, Via Natural or Artificial Opening Endoscopic, Diagnostic (ICD-10-PCS; 2023-08-13)
PROC: 0W9G3ZX Drainage of Peritoneal Cavity, Percutaneous Approach, Diagnostic (ICD-10-PCS; 2023-08-13)
DX: A41.59 Other Gram-negative sepsis (principal); E43 Unspecified severe protein-calorie malnutrition; R65.21 Severe sepsis with septic shock; N17.0 Acute kidney failure with tubular necrosis; Z68.1 Body mass index [BMI] 19.9 or less, adult; N13.6 Pyonephrosis; N18.4 Chronic kidney disease, stage 4 (severe); K92.0 Hematemesis; N41.0 Acute prostatitis; N41.2 Abscess of prostate; R18.8 Other ascites; E87.20 Acidosis, unspecified; I50.30 Unspecified diastolic (congestive) heart failure; I13.2 Hypertensive heart and chronic kidney disease with heart failure and with stage 5 chronic kidney disease, or end stage renal disease; L97.929 Non-pressure chronic ulcer of unspecified part of left lower leg with unspecified severity; L97.919 Non-pressure chronic ulcer of unspecified part of right lower leg with unspecified severity; N13.8 Other obstructive and reflux uropathy; Z66 Do not resuscitate; E87.5 Hyperkalemia; I48.91 Unspecified atrial fibrillation; E04.1 Nontoxic single thyroid nodule; D49.4 Neoplasm of unspecified behavior of bladder; I27.20 Pulmonary hypertension, unspecified; E27.8 Other specified disorders of adrenal gland; D64.9 Anemia, unspecified; N43.3 Hydrocele, unspecified; R91.8 Other nonspecific abnormal finding of lung field; Z20.822 Contact with and (suspected) exposure to COVID-19; R09.02 Hypoxemia; F43.22 Adjustment disorder with anxiety; N40.1 Benign prostatic hyperplasia with lower urinary tract symptoms; I95.1 Orthostatic hypotension; L08.9 Local infection of the skin and subcutaneous tissue, unspecified; F15.91 Other stimulant use, unspecified, in remission; Z86.718 Personal history of other venous thrombosis and embolism; Z87.440 Personal history of urinary (tract) infections; Z87.891 Personal history of nicotine dependence; Z95.2 Presence of prosthetic heart valve; Z63.4 Disappearance and death of family member; Z91.199 Patient's noncompliance with other medical treatment and regimen due to unspecified reason
CPT/HCPCS: 70450; 71250; 73700; 74019; 74181; 76000; 76700; 76870; 80048; 80053; 81001; 82024; 82042; 82272; 82533; 82803; 82945; 82948; 83605; 83615; 83690; 83735; 83880; 84100; 84145; 84153; 84154; 84157; 85007; 85018; 85610; 86140; 86885; 86900; 86901; 87040; 87077; 87186; 87502; 87503; 87634; 87811; 89051; 89055; 93005; 93976; 94640; 94760; 96374; 97161; 99285; C1769; C2617; J0610; J1815; J2370; J3475; J3490; J7120; P9047; 36415; 36600; 49083; 71045; 74176; 80320; 85025; 85651; 87070; 87081; 87088; 87324; 87449; 88108; 88305; 88307; 93308; 97110; 97530; 97535; A4314; A4333; A4340; A4615; A4618; A4620; A6196; A6212; A6213; A6222; A6223; A6250; A6258; A6260; A6446; A6449; C1751; C1758; G0378; J0696; J1940; J2250; J2270; J2405; J2543; J2704; J2765; J3010; J7030; J7040; J7070; J7121; L3260; P9045; Q9963; Q9967

== ENCOUNTER 2024-10-22 04:45 | Inpatient (IN) | payer MEDICARE, OTHER ==
[~2024-10-22] VITALS: Ht 200.7 cm; Wt 80.2 kg
[2024-10-22] VITALS (8 sets, daily range): BP systolic 109–125; BP diastolic 69–77; PULSE 73–98; RESP 14–18; TEMP 97–98.2; O2SAT 93–99
[~2024-10-22 04:45] MED LIST changes: +AMI200T PO; +APIX5TAB3 PO; +FERR325T29 PO; +FLUD0.1T PO; +LACT1CAP26 PO; +LISI5TAB22 PO; -NO HOME MEDS
[2024-10-22 07:06] LABS: BASOPHILS # (AUTO) 0.1 X10'3 (0-0.2); BASOPHILS % (AUTO) 0.7 % (0-1); EOSINOPHILS # (AUTO) 0.1 X10'3 (0-0.9); EOSINOPHILS % (AUTO) 1.8 % (0-6); HEMATOCRIT 37.7 % (42.0-52.0); HEMOGLOBIN 12.6 g/dl (14.0-17.9); LYMPHOCYTES # (AUTO) 1.4 X10'3 (1.1-4.8); LYMPHOCYTES % (AUTO) 17.5 % (21-51); MEAN CORPUSCULAR HEMOGLOBIN 27.3 PG (27.0-31.0); MEAN CORPUSCULAR HGB CONC 33.3 g/dL (33.0-36.5); MEAN PLATELET VOLUME 7.4 FL (7.4-10.4); MONOCYTES # (AUTO) 0.5 X10'3 (0-0.9); MONOCYTES % (AUTO) 6.5 % (2-12); NEUTROPHILS # (AUTO) 5.8 X10'3 (1.8-7.7); NEUTROPHILS % (AUTO) 73.5 % (42-75); PLATELET COUNT 373 X10'3 (140-440); RED CELL DISTRIBUTION WIDTH 16.5 % (11.5-14.5); WHITE BLOOD COUNT 7.9 X10'3 (4.5-11.0)
[2024-10-22 07:24] LABS: INR 1.1 INR; PROTHROMBIN TIME 11.2 SECONDS (9.0-12.0)
[2024-10-22 07:33] LABS: ALBUMIN 3.3 G/DL (3.4-5.0); ANION GAP 15 (8-16); BLOOD UREA NITROGEN 55 MG/DL (7-18); BUN/CREATININE RATIO 25.9 (10.0-20.0); CHLORIDE 106 MMOL/L (99-107); CREATININE 2.12 MG/DL (0.60-1.10); GLUCOSE 104 MG/DL (70-104); MAGNESIUM 2.2 MG/DL (1.5-2.4); SODIUM 140 MMOL/L (135-145); TOTAL CARBON DIOXIDE 18.7 MMOL/L (24-32); eCRCL 34 ML/MIN; eGFR 31 ML/MIN
[2024-10-22] MEDS: enoxaparin 80mg/0.8ml syringe SUBCUT ONE (07:58)
[2024-10-22] MEDS: ceFAZolin/D5W- 1GM premix 50 ML IV STA (07:58)
[2024-10-22] MEDS: K and/or MAG REPLACEMENT MC SCH (08:00)
[2024-10-22] MEDS ORDERED: potassium Cl 20 mEq SR tablet PO PRN ×2 (08:00)
[2024-10-22] MEDS ORDERED: acetaminophen 325mg tablet PO PRN ×2 (08:00)
[2024-10-22] MEDS ORDERED: ondansetron/PF 4mg/2ml inj IV PRN (08:00)
[2024-10-22] MEDS ORDERED: mag hydrox/Alum hydrox/simeth 30ml oral suspension PO PRN (08:00)
[2024-10-22] MEDS ORDERED: magnesium hydroxide 30ml (MOM) UD suspension PO PRN (08:00)
[2024-10-22] MEDS ORDERED: ipratropium/albuterol 3ml nebule NEB PRN (08:00)
[2024-10-22] MEDS ORDERED: HYDROcodone/acetaminophen 5mg/325mg tablet PO PRN (08:00)
[2024-10-22] MEDS: docusate sod 100mg capsule PO SCH (08:00)
[2024-10-22] MEDS ORDERED: magnesium sulf-water 2g/50mL 50 ML IV PRN (08:00)
[2024-10-22] MEDS ORDERED: magnesium sulf-water 4G/100mL 100 ML IV PRN (08:00)
[2024-10-22] MEDS ORDERED: potassium Cl 40MEQ/1/2NS 520ml 520 ML IV PRN (08:00)
[2024-10-22] MEDS: normal saline 1000ML IV soln IVB ONE (08:03)
[2024-10-22] MEDS: PERFLUTREN PROTEIN-A MICROSPHR (Optison) 0.22 MG/ML 3ML VIAL IV ONE (08:09)
[2024-10-22] MEDS: sodium bicarbonate (8.4%) inj. 100 MEQ in dextrose 5%-water 1,000 ML IV SCH (08:37)
[2024-10-22] MEDS ORDERED: NO HOME MEDS (09:26)
[2024-10-22 09:38] LABS: APTT 34 SECONDS (22-32)
[2024-10-22] MEDS ORDERED: LOSA-415 PO (12:32)
[2024-10-22] MEDS ORDERED: WARF1TAB83 PO (12:32)
[2024-10-22] MEDS ORDERED: FINA5TAB11 PO (12:32)
[2024-10-22] MEDS ORDERED: METO-395 PO (12:32)
[2024-10-22] MEDS ORDERED: FLO0.4C PO (12:32)
[2024-10-22] MEDS: ceFAZolin/D5W- 1GM premix 50 ML IV SCH (16:55)
[2024-10-22 17:36] LABS: URINE AMPHETAMINE SCREEN POSITIVE (Neg); URINE BARBITUATE SCREEN NEGATIVE (Neg); URINE BENZODIAZEPINES SCREEN NEGATIVE (Neg); URINE CANNABINOID SCREEN NEGATIVE (Neg); URINE COCAINE SCREEN NEGATIVE (Neg); URINE METHADONE SCREEN NEGATIVE (Neg); URINE OPIATE SCREEN NEGATIVE (Neg); URINE PHENCYCLIDINE SCREEN NEGATIVE (Neg)
[2024-10-22] MEDS: MESSAGE TO NURSING IV ONE (20:20)
[2024-10-22] MEDS: heparin 10,000 units/1 ML INJ IV ONE (20:40)
[2024-10-22] MEDS: heparin 25,000 UNIT/250ml bag 250 ML IV PRN (20:41)
[2024-10-23] VITALS (7 sets, daily range): BP systolic 90–104; BP diastolic 48–69; PULSE 81–107; RESP 16–20; TEMP 97.6–97.7; O2SAT 95–98
[2024-10-23 03:02] LABS: BASOPHILS # (AUTO) 0.1 X10'3 (0-0.2); EOSINOPHILS # (AUTO) 0.3 X10'3 (0-0.9); EOSINOPHILS % (AUTO) 4.3 % (0-6); HEMATOCRIT 35.3 % (42.0-52.0); HEMOGLOBIN 11.4 g/dl (14.0-17.9); LYMPHOCYTES # (AUTO) 1.5 X10'3 (1.1-4.8); MEAN CORPUSCULAR HEMOGLOBIN 26.5 PG (27.0-31.0); MEAN CORPUSCULAR HGB CONC 32.3 g/dL (33.0-36.5); MEAN CORPUSCULAR VOLUME 81.9 FL (78-98); MEAN PLATELET VOLUME 7.6 FL (7.4-10.4); MONOCYTES # (AUTO) 0.4 X10'3 (0-0.9); MONOCYTES % (AUTO) 5.7 % (2-12); NEUTROPHILS # (AUTO) 4.5 X10'3 (1.8-7.7); PLATELET COUNT 323 X10'3 (140-440); RED BLOOD COUNT 4.31 X10'6 (4.70-6.10); RED CELL DISTRIBUTION WIDTH 16.7 % (11.5-14.5); WHITE BLOOD COUNT 6.8 X10'3 (4.5-11.0)
[2024-10-23 03:16] LABS: ALANINE AMINOTRANSFERASE 13 U/L (12-78); ALBUMIN 2.5 G/DL (3.4-5.0); ALBUMIN/GLOBULIN RATIO 0.7 (1.1-1.5); ALKALINE PHOSPHATASE 125 IU/L (46-116); ANION GAP 10 (8-16); ASPARTATE AMINO TRANSFERASE 10 U/L (10-37); BILIRUBIN,TOTAL 0.2 MG/DL (0.1-1.0); BLOOD UREA NITROGEN 45 MG/DL (7-18); BUN/CREATININE RATIO 26.5 (10.0-20.0); CALCIUM 8.1 MG/DL (8.5-10.1); CHLORIDE 107 MMOL/L (99-107); GLUCOSE 133 MG/DL (70-104); POTASSIUM 3.5 MMOL/L (3.5-5.1); SODIUM 142 MMOL/L (135-145); TOTAL PROTEIN 6.2 G/DL (6.4-8.2); eCRCL 43 ML/MIN; eGFR 39 ML/MIN
[2024-10-23] MEDS: heparin 10,000 units/1 ML INJ IV PRN (03:46)
[2024-10-23] MEDS: MESSAGE TO NURSING IV ONE ×3 (03:55→18:14)
[2024-10-23] MEDS: carVEDilol 3.125mg tablet PO SCH (19:53)
[2024-10-24] VITALS (9 sets, daily range): BP systolic 94–120; BP diastolic 55–92; PULSE 52–101; RESP 14–20; TEMP 97.6–98.7; O2SAT 91–97
[2024-10-24] MEDS: MESSAGE TO NURSING IV ONE ×4 (00:26→21:10)
[2024-10-24] MEDS ORDERED: losartan 25mg tablet PO SCH (08:00)
[2024-10-24] MEDS: losartan 25mg tablet PO SCH (08:00)
[2024-10-24] MEDS: tamsulosin 0.4mg capsule PO SCH (08:00)
[2024-10-24] MEDS: metoprolol succinate 25mg (24-HOUR) SR. Tablet PO SCH (08:00)
[2024-10-24] MEDS ORDERED: vancomycin inj 1,000 MG in normal saline 250ml IV soln 250 ML IV ONE (08:05)
[2024-10-24 08:37] LABS: BASOPHILS # (AUTO) 0.1 X10'3 (0-0.2); EOSINOPHILS # (AUTO) 0.3 X10'3 (0-0.9); EOSINOPHILS % (AUTO) 4.3 % (0-6); HEMATOCRIT 37.8 % (42.0-52.0); HEMOGLOBIN 12.5 g/dl (14.0-17.9); LYMPHOCYTES % (AUTO) 27.4 % (21-51); MEAN CORPUSCULAR HEMOGLOBIN 27.1 PG (27.0-31.0); MEAN CORPUSCULAR HGB CONC 33.2 g/dL (33.0-36.5); MEAN CORPUSCULAR VOLUME 81.8 FL (78-98); MEAN PLATELET VOLUME 7.8 FL (7.4-10.4); MONOCYTES # (AUTO) 0.5 X10'3 (0-0.9); MONOCYTES % (AUTO) 6.4 % (2-12); NEUTROPHILS # (AUTO) 4.5 X10'3 (1.8-7.7); NEUTROPHILS % (AUTO) 60.9 % (42-75); PLATELET COUNT 363 X10'3 (140-440); RED BLOOD COUNT 4.62 X10'6 (4.70-6.10); RED CELL DISTRIBUTION WIDTH 16.4 % (11.5-14.5); WHITE BLOOD COUNT 7.3 X10'3 (4.5-11.0)
[2024-10-24 09:03] LABS: ALANINE AMINOTRANSFERASE 6 U/L (12-78); ALBUMIN 2.7 G/DL (3.4-5.0); ALBUMIN/GLOBULIN RATIO 0.7 (1.1-1.5); ALKALINE PHOSPHATASE 125 IU/L (46-116); ANION GAP 7 (8-16); ASPARTATE AMINO TRANSFERASE 8 U/L (10-37); BILIRUBIN,TOTAL 0.2 MG/DL (0.1-1.0); BLOOD UREA NITROGEN 37 MG/DL (7-18); BUN/CREATININE RATIO 26.1 (10.0-20.0); CALCIUM 8.7 MG/DL (8.5-10.1); CHLORIDE 107 MMOL/L (99-107); CREATININE 1.42 MG/DL (0.60-1.10); GLUCOSE 97 MG/DL (70-104); POTASSIUM 4.1 MMOL/L (3.5-5.1); SODIUM 142 MMOL/L (135-145); TOTAL CARBON DIOXIDE 28.1 MMOL/L (24-32); TOTAL PROTEIN 6.5 G/DL (6.4-8.2); eCRCL 51 ML/MIN; eGFR 49 ML/MIN
[2024-10-24] MEDS: vancomycin/NS 1 GM ADD-VANTAGE 250 ML IV SCH (09:40)
[2024-10-25] VITALS (9 sets, daily range): BP systolic 100–126; BP diastolic 40–88; PULSE 66–110; RESP 15–19; TEMP 97.4–98.2; O2SAT 90–99
[2024-10-25] MEDS: MESSAGE TO NURSING IV ONE ×2 (02:34→08:10)
[2024-10-25 06:09] LABS: BASOPHILS % (AUTO) 0.5 % (0-1); EOSINOPHILS # (AUTO) 0.4 X10'3 (0-0.9); EOSINOPHILS % (AUTO) 4.2 % (0-6); HEMATOCRIT 38.8 % (42.0-52.0); HEMOGLOBIN 12.6 g/dl (14.0-17.9); LYMPHOCYTES % (AUTO) 23.8 % (21-51); MEAN CORPUSCULAR HEMOGLOBIN 26.6 PG (27.0-31.0); MEAN CORPUSCULAR HGB CONC 32.3 g/dL (33.0-36.5); MEAN CORPUSCULAR VOLUME 82.1 FL (78-98); MEAN PLATELET VOLUME 7.7 FL (7.4-10.4); MONOCYTES # (AUTO) 0.5 X10'3 (0-0.9); MONOCYTES % (AUTO) 5.9 % (2-12); NEUTROPHILS # (AUTO) 5.6 X10'3 (1.8-7.7); NEUTROPHILS % (AUTO) 65.6 % (42-75); PLATELET COUNT 372 X10'3 (140-440); RED BLOOD COUNT 4.73 X10'6 (4.70-6.10); RED CELL DISTRIBUTION WIDTH 16.8 % (11.5-14.5); WHITE BLOOD COUNT 8.6 X10'3 (4.5-11.0)
[2024-10-25 06:34] LABS: ALANINE AMINOTRANSFERASE 10 U/L (12-78); ALBUMIN 2.7 G/DL (3.4-5.0); ALBUMIN/GLOBULIN RATIO 0.7 (1.1-1.5); ALKALINE PHOSPHATASE 125 IU/L (46-116); ANION GAP 7 (8-16); ASPARTATE AMINO TRANSFERASE 12 U/L (10-37); BILIRUBIN,TOTAL 0.2 MG/DL (0.1-1.0); BLOOD UREA NITROGEN 48 MG/DL (7-18); BUN/CREATININE RATIO 26.2 (10.0-20.0); CALCIUM 8.6 MG/DL (8.5-10.1); CHLORIDE 105 MMOL/L (99-107); CREATININE 1.83 MG/DL (0.60-1.10); GLUCOSE 110 MG/DL (70-104); MAGNESIUM 1.9 MG/DL (1.5-2.4); POTASSIUM 4.7 MMOL/L (3.5-5.1); SODIUM 140 MMOL/L (135-145); TOTAL CARBON DIOXIDE 28.1 MMOL/L (24-32); TOTAL PROTEIN 6.6 G/DL (6.4-8.2); eCRCL 40 ML/MIN; eGFR 36 ML/MIN
[2024-10-25] MEDS: enoxaparin 80mg/0.8ml syringe SUBCUT SCH (11:08)
[2024-10-25 14:04] LABS: PROTHROMBIN TIME 10.9 SECONDS (9.0-12.0)
[2024-10-25] MEDS: warfarin 1mg tablet PO ONE (22:28)
[2024-10-26] VITALS (9 sets, daily range): BP systolic 82–115; BP diastolic 55–79; PULSE 90–104; RESP 14–19; TEMP 97.4–98; O2SAT 91–96
[2024-10-26 06:24] LABS: BASOPHILS % (AUTO) 0.2 % (0-1); EOSINOPHILS # (AUTO) 0.1 X10'3 (0-0.9); EOSINOPHILS % (AUTO) 1.5 % (0-6); HEMATOCRIT 39.3 % (42.0-52.0); HEMOGLOBIN 12.7 g/dl (14.0-17.9); LYMPHOCYTES # (AUTO) 1.7 X10'3 (1.1-4.8); LYMPHOCYTES % (AUTO) 16.4 % (21-51); MEAN CORPUSCULAR HEMOGLOBIN 26.8 PG (27.0-31.0); MEAN CORPUSCULAR HGB CONC 32.4 g/dL (33.0-36.5); MEAN CORPUSCULAR VOLUME 82.7 FL (78-98); MEAN PLATELET VOLUME 7.9 FL (7.4-10.4); MONOCYTES # (AUTO) 0.6 X10'3 (0-0.9); MONOCYTES % (AUTO) 5.8 % (2-12); NEUTROPHILS # (AUTO) 7.7 X10'3 (1.8-7.7); NEUTROPHILS % (AUTO) 76.1 % (42-75); PLATELET COUNT 385 X10'3 (140-440); PROTHROMBIN TIME 10.9 SECONDS (9.0-12.0); RED BLOOD COUNT 4.75 X10'6 (4.70-6.10); RED CELL DISTRIBUTION WIDTH 16.5 % (11.5-14.5); WHITE BLOOD COUNT 10.1 X10'3 (4.5-11.0)
[2024-10-26 06:37] LABS: ALANINE AMINOTRANSFERASE 7 U/L (12-78); ALBUMIN 2.7 G/DL (3.4-5.0); ALBUMIN/GLOBULIN RATIO 0.7 (1.1-1.5); ALKALINE PHOSPHATASE 120 IU/L (46-116); ANION GAP 6 (8-16); ASPARTATE AMINO TRANSFERASE 16 U/L (10-37); BILIRUBIN,TOTAL 0.2 MG/DL (0.1-1.0); BLOOD UREA NITROGEN 46 MG/DL (7-18); BUN/CREATININE RATIO 27.7 (10.0-20.0); CALCIUM 8.8 MG/DL (8.5-10.1); CHLORIDE 107 MMOL/L (99-107); CREATININE 1.66 MG/DL (0.60-1.10); GLUCOSE 119 MG/DL (70-104); POTASSIUM 4.5 MMOL/L (3.5-5.1); SODIUM 141 MMOL/L (135-145); TOTAL CARBON DIOXIDE 28.5 MMOL/L (24-32); TOTAL PROTEIN 6.6 G/DL (6.4-8.2); eCRCL 44 ML/MIN; eGFR 41 ML/MIN
[2024-10-26] MEDS: warfarin 10mg tablet PO ONE (09:47)
[2024-10-26] MEDS: JUVEN Smoothie Arginine/Glut./Ca2+Bmb (Juven 19.3pkt) 240ml cup PO SCH (18:44)
[2024-10-27] VITALS (8 sets, daily range): BP systolic 93–126; BP diastolic 63–88; PULSE 83–140; RESP 14–18; TEMP 97.1–98.6; O2SAT 94–95
[2024-10-27] MEDS: diazepam 5mg tablet PO ONE (04:03)
[2024-10-27] MEDS: normal saline 1000ml 1,000 ML IV ONE (06:05)
[2024-10-27 06:55] LABS: BASOPHILS # (AUTO) 0.1 X10'3 (0-0.2); BASOPHILS % (AUTO) 0.5 % (0-1); EOSINOPHILS # (AUTO) 0.1 X10'3 (0-0.9); HEMATOCRIT 37.6 % (42.0-52.0); HEMOGLOBIN 12.2 g/dl (14.0-17.9); MEAN CORPUSCULAR HEMOGLOBIN 27.1 PG (27.0-31.0); MEAN CORPUSCULAR HGB CONC 32.6 g/dL (33.0-36.5); MEAN CORPUSCULAR VOLUME 83.3 FL (78-98); MEAN PLATELET VOLUME 7.9 FL (7.4-10.4); MONOCYTES # (AUTO) 0.5 X10'3 (0-0.9); NEUTROPHILS % (AUTO) 74.5 % (42-75); PLATELET COUNT 340 X10'3 (140-440); RED BLOOD COUNT 4.51 X10'6 (4.70-6.10); RED CELL DISTRIBUTION WIDTH 16.8 % (11.5-14.5); WHITE BLOOD COUNT 10.7 X10'3 (4.5-11.0)
[2024-10-27 07:17] LABS: ALANINE AMINOTRANSFERASE 8 U/L (12-78); ALBUMIN 2.6 G/DL (3.4-5.0); ALBUMIN/GLOBULIN RATIO 0.7 (1.1-1.5); ALKALINE PHOSPHATASE 113 IU/L (46-116); ANION GAP 6 (8-16); ASPARTATE AMINO TRANSFERASE 16 U/L (10-37); BILIRUBIN,TOTAL 0.2 MG/DL (0.1-1.0); BLOOD UREA NITROGEN 50 MG/DL (7-18); BUN/CREATININE RATIO 34.2 (10.0-20.0); CALCIUM 8.6 MG/DL (8.5-10.1); CHLORIDE 108 MMOL/L (99-107); CREATININE 1.46 MG/DL (0.60-1.10); GLUCOSE 107 MG/DL (70-104); MAGNESIUM 2.1 MG/DL (1.5-2.4); POTASSIUM 4.6 MMOL/L (3.5-5.1); SODIUM 141 MMOL/L (135-145); TOTAL CARBON DIOXIDE 27.5 MMOL/L (24-32); TOTAL PROTEIN 6.3 G/DL (6.4-8.2); eCRCL 50 ML/MIN; eGFR 47 ML/MIN
[2024-10-27] MEDS: VANCOMYCIN LEVEL IV ONE (08:27)
[2024-10-27 09:10] LABS: PROTHROMBIN TIME 21.2 SECONDS (9.0-12.0)
[2024-10-27 09:33] LABS: INR 2.2 INR
[2024-10-27] MEDS: HYDROcodone/acetaminophen 10/325mg tab PO PRN (10:01)
[2024-10-27] MEDS: metoprolol tartrate 50mg tablet PO ONE (13:04)
[2024-10-28 02:00] VITALS: BP 101/56; PULSE 103; RESP 12; TEMP 98.5; O2SAT 95
[2024-10-28 06:00] VITALS: BP 135/87; PULSE 130; RESP 18; TEMP 97.4; O2SAT 93
[2024-10-28 08:00] VITALS: RESP 18; O2SAT 93
[2024-10-28] MEDS: VANCOMYCIN/WATER FOR INJ (PEG) 1.25GM/250 ML IVPB IV SCH (08:22)
[2024-10-28 08:50] LABS: INR 4.3 INR
[2024-10-28 09:40] LABS: BASOPHILS # (AUTO) 0.1 X10'3 (0-0.2); BASOPHILS % (AUTO) 0.6 % (0-1); EOSINOPHILS # (AUTO) 0.2 X10'3 (0-0.9); EOSINOPHILS % (AUTO) 2.6 % (0-6); HEMATOCRIT 35.8 % (42.0-52.0); HEMOGLOBIN 11.5 g/dl (14.0-17.9); LYMPHOCYTES # (AUTO) 2.1 X10'3 (1.1-4.8); LYMPHOCYTES % (AUTO) 21.5 % (21-51); MEAN CORPUSCULAR HEMOGLOBIN 27.1 PG (27.0-31.0); MEAN CORPUSCULAR HGB CONC 32.2 g/dL (33.0-36.5); MEAN CORPUSCULAR VOLUME 84.3 FL (78-98); MEAN PLATELET VOLUME 8.7 FL (7.4-10.4); MONOCYTES # (AUTO) 0.6 X10'3 (0-0.9); MONOCYTES % (AUTO) 5.9 % (2-12); NEUTROPHILS # (AUTO) 6.6 X10'3 (1.8-7.7); NEUTROPHILS % (AUTO) 69.4 % (42-75); PLATELET COUNT 310 X10'3 (140-440); RED BLOOD COUNT 4.25 X10'6 (4.70-6.10); RED CELL DISTRIBUTION WIDTH 17.3 % (11.5-14.5); WHITE BLOOD COUNT 9.6 X10'3 (4.5-11.0)
[2024-10-28 10:01] LABS: ALANINE AMINOTRANSFERASE 12 U/L (12-78); ALBUMIN 2.5 G/DL (3.4-5.0); ALBUMIN/GLOBULIN RATIO 0.7 (1.1-1.5); ALKALINE PHOSPHATASE 107 IU/L (46-116); ANION GAP 4 (8-16); ASPARTATE AMINO TRANSFERASE 13 U/L (10-37); BILIRUBIN,TOTAL 0.2 MG/DL (0.1-1.0); BLOOD UREA NITROGEN 63 MG/DL (7-18); BUN/CREATININE RATIO 36.6 (10.0-20.0); CALCIUM 8.6 MG/DL (8.5-10.1); CHLORIDE 110 MMOL/L (99-107); CREATININE 1.72 MG/DL (0.60-1.10); GLUCOSE 94 MG/DL (70-104); POTASSIUM 4.6 MMOL/L (3.5-5.1); SODIUM 142 MMOL/L (135-145); TOTAL CARBON DIOXIDE 28.1 MMOL/L (24-32); eCRCL 42 ML/MIN; eGFR 39 ML/MIN
[2024-10-28 11:00] VITALS: BP 89/48; PULSE 85; RESP 18; TEMP 97.7; O2SAT 100
[2024-10-28] MEDS ORDERED: guaiFENesin ER 600mg tablet PO ONE (13:00)
[2024-10-31] MEDS ORDERED: VANCOMYCIN LEVEL IV ONE (08:30)
== END 2024-10-28 14:58 | DRG 299 ==
LOC: ER 04:46 → ED HOLD 08:04 → PCU 3S 12:53
PROVIDERS: ADMIT Family Medicine; ATTEND Family Medicine
DX: I82.411 Acute embolism and thrombosis of right femoral vein (principal); I50.21 Acute systolic (congestive) heart failure; N17.0 Acute kidney failure with tubular necrosis; L03.115 Cellulitis of right lower limb; N18.4 Chronic kidney disease, stage 4 (severe); I48.20 Chronic atrial fibrillation, unspecified; M86.671 Other chronic osteomyelitis, right ankle and foot; I82.421 Acute embolism and thrombosis of right iliac vein; I82.491 Acute embolism and thrombosis of other specified deep vein of right lower extremity; L97.519 Non-pressure chronic ulcer of other part of right foot with unspecified severity; Z79.899 Other long term (current) drug therapy; Z95.2 Presence of prosthetic heart valve; Z87.891 Personal history of nicotine dependence
CPT/HCPCS: 36415; 73700; 80048; 80053; 80202; 80305; 82948; 83605; 83735; 84145; 85025; 85610; 85730; 87040; 87070; 87075; 87077; 87081; 87186; 93306; 93926; 93971; 94760; 96365; 96366; 96367; 96372; 96376; 97110; 97116; 97161; 99285; A6213; A6223; A6258; A6260; A6446; A6449; G0378; J0690; J1644; J1650; J3370; J3372; J3490; J7030; J7040; J7070